=== PATIENT | male | born 1985 ===

== ENCOUNTER 2018-03-08 07:49 | Inpatient (IN) | payer BC ==
[2018-03-08 07:49] VITALS: BMI 28.1
[2018-03-08] MEDS ORDERED: Midazolam 2 MG/2 ML VIAL ONE (08:01)
[2018-03-08] MEDS ORDERED: DiphenhydrAMINE 50 mg/ml Inj IVP STA (08:02)
[2018-03-08] MEDS ORDERED: Midazolam 2 MG/2 ML VIAL IV STA (08:02)
[2018-03-08] MEDS ORDERED: DiphenhydrAMINE 50 mg/ml Inj ONE (08:02)
--- NOTE | 2018-03-08 08:02 | C.PDOC ---
History Of Present Illness 32 y/o male, w/PMhx of CVA ( January 2018) brought to ER by ambulance from detention for new onset of difficulty speaking and left leg weakness. Per detention staff and EMS, patient was last seen at baseline mental status at 1:30 am. long-term staff notes that he was conversational. Currently, patient is able to communicate about his symptoms by typing on his cellphone. Patient states that his jaw is clenched, he is not able to "release" his jaw and speak. He notes that his "whole body feels tight. He has questionable new onset of worsening weakness of left leg and questionable new onset of parasthesias. He has history of baseline RUE and RLE weakness due to prior stroke. Per detention records, he is currently on medications for extraperitoneal symptoms. Denies having CP and SOB. Time Seen by Provider: 03/08/18 08:01 Chief Complaint (Nursing): Weakness/Neurological Deficit History Per: Patient, EMS, Other (detention staff) History/Exam Limitations: clinical condition Onset/Duration Of Symptoms: Hrs Current Symptoms Are (Timing): Still Present Severity: Moderate Past Medical History Reviewed: Historical Data, Nursing Documentation, Vital Signs - Medical History PMH: Asthma (Only when pt. was "a little kid") Denies: HIV, Chronic Kidney Disease Other Surgeries: Hx of surgeries - [facility] Procedures APHASIA TREATMENT USING AUGMENT COMM EQUIPMENT (01/20/18) EXERCISE TRMT MUSCULOSK LOW BACK/LE W ASSIST EQUIP (01/20/18) GAIT TRAINING/AMBULAT TREATMENT USING ASSIST EQUIPMENT (01/20/18) HOME MANAGEMENT TREATMENT USING ASSIST EQUIPMENT (01/20/18) INSPECTION OF LARYNX, ENDO (01/20/18) INTRODUCTION OF SERUM/TOX/VACCINE INTO MUSCLE, PERC APPROACH (01/20/18) SPINAL TAP (11/11/14) SWALLOW DYSFUNCTION TREATMENT USING AUGMENT COMM EQUIPMENT (01/20/18) Family History: States: No Known Family Hx - Social History Hx Alcohol Use: No Hx Substance Use: No Review Of Systems Review Of Systems: ROS cannot be obtained secondary to pt's inabilty to answer questions. Physical Exam - Physical Exam Appears: Other (awake,alert) Skin: Normal Color, Warm, Dry Head: Atraumatic, Normacephalic Eye(s): bilateral: Normal Inspection Nose: Normal Oral Mucosa: No Drooling, Trismus (severe trismus), Other (unable to open mouth) Neck: Supple Chest: Symmetrical Cardiovascular: Rhythm Regular Respiratory: Normal Breath Sounds, No Rales, No Rhonchi, No Wheezing Neurological/Psych: Other (awake, alert, non-verbal due to trismus, pt able to type on cellphone note for communication, appropriately interactive, follows instructions appropriately, chronic right-sided hemiparesis) ED Course And Treatment - Laboratory Results Result Diagrams: 03/08/18 08:57 03/08/18 08:57 ECG: Interpreted By Me, Viewed By Me ECG Rhythm: Sinus Rhythm ECG Interpretation: Normal Rate From EC - Other Rad CXR X-Ray: Viewed By Me, Read By Radiologist Interpretation: Chest x-ray single frontal view. HISTORY: Code stroke. MONIQUE RISON: None available. Findings: Mild venous congestion. Right hilar prominence. Mild cardiomegaly. Degenerative changes in the spine and shoulders. Impression: Mild venous congestion. Right hilar prominence. Mild cardiomegaly. - CT Scan/US CT-Head Other Rad Studies (CT/US): Read By Radiologist, Radiology Report Reviewed CT/US Interpretation: Date of service: 03/08/2018. PROCEDURE: CT HEAD WITHOUT CONTRAST. HISTORY: Code Stroke. COMPARISON: None available. TECHNIQUE: Axial computed tomography images were obtained through the head/brain without intravenous contrast. Radiation dose: Total exam DLP = 1093.03 mGy-cm. This CT exam was performed using one or more of the following dose reduction techniques: Automated exposure control, adjustment of the mA and/or kV according to patient size, and/or use of iterative reconstruction technique. FINDINGS: Mild streak artifact limits evaluation of the skull base. HEMORRHAGE: No intracranial hemorrhage. BRAIN: No mass effect or edema. The foster-white matter differentiation appears intact. VENTRICLES: No hydrocephalus. CALVARIUM: Unremarkable. PARANASAL SINUSES: Unremarkable as visualized. No significant inflammatory changes. MASTOID AIR CELLS: Unremarkable as visualized. No inflammatory changes. OTHER FINDINGS: None. IMPRESSION: No acute intracranial pathology identified. Please note that MRI with diffusion imaging is more sensitive in the detection of acute ischemic event. Findings discussed with Dr. López on 03/08/18 at 8:25 a.m. CTA Other Rad Studies (CT/US): Read By Radiologist, Radiology Report Reviewed CT/US Interpretation: Date of service: 03/08/2018. PROCEDURE: CT Angiography of the neck and brain with contrast. HISTORY: Code stroke. COMPARISON: None. TECHNIQUE: Contiguous axial images of the neck and brain were obtained from the level of the vertex of the skull to the superior mediastinum in the arteriographic phase of enhancement. Coronal and sagittal reformats or also generated. IV contrast dose: 100 cc Visipaque 320 contrast material. Radiation dose: Total exam DLP = 699.48 mGy-cm. This CT exam was performed using one or more of the following dose reduction techniques: Automated exposure control, adjustment of the mA and/or kV according to patient size, and/or use of iterative reconstruction technique. Note that the study is slightly limited by motion artifact. FINDINGS: The aortic arch is patent with no significant ath erosclerotic calcification or moral plaque. The origins of the great vessels are also patent.. Common carotid arteries including the carotid bifurcations are patent with no evidence of occlusion significant stenosis or dissection. Note that motion artifact likely due to swallowing at time of image acquisition results in some obscuration of the distal common carotid artery/carotid bifurcations and proximal internal carotid arteries bilaterally. The distal internal carotid arteries including the petrous, cavernous and supraclinoid segments are patent. The the. Vertebral arteries are also patent without evidence of occlusion dissection or significant stenosis. Basilar artery is also patent. The visualized major branches of the [place] well as are patent. The distal branches of the anterior middle and posterior cerebral arteries are patent and relatively symmetric as well. No evidence of large aneurysm nor vascular malformation. OTHER FINDINGS: No aortic atherosclerotic calcification or mural plaque present. IMPRESSION: No evidence of significant atherosclerotic disease. Evidence of occlusion, significant stenosis or evidence of dissection. No large aneurysm nor vascular malformation. NIHSS Stroke Scale - Date/Time Evaluation Performed Date Performed: 03/08/18 Time Performed: 08:00 When Was NIHSS Performed: Code Stroke - How Severe is the Stroke Level of Consciousness: 0=Alert LOC to Questions: 0=Both comments correct LOC to commands: 0=Obeys both correctly Best Gaze: 0=Normal Visual: 0=No visual loss Facial: 0=Normal Motor Arm - Left: 0=No drift Motor Arm - Right: 3=No effort against gravity (falls immediately) Motor Leg - Left: 4=No movement Motor Leg - Right: 4=No movement Limb Ataxia: 0=Absent Sensory: 1=Mild to moderate loss Best Language: 3=Mute Dysarthia: 2=Severe, near unintelligible or worse Extinction & Inattention (Neglect): 0=Normal, no object Score: 17 NIHSS Stroke Scale 2 - Date/Time Evaluation Performed Date Performed: 03/08/18 Time Performed: 08:00 When Was NIHSS Performed: Code Stroke Re-evaluation - How Severe is the Stroke Level of Consciousness: 0=Alert LOC to Questions: 0=Both comments correct LOC to commands: 0=Obeys both correctly Best Gaze: 0=Normal Visual: 0=No visual loss Facial: 0=Normal Motor Arm - Left: 0=No drift Motor Arm - Right: 3=No effort against gravity (falls immediately) Motor Leg - Left: 4=No movement Motor Leg - Right: 4=No movement Limb Ataxia: 0=Absent Sensory: 1=Mild to moderate loss Best Language: 2=Severe aphasia Dysarthia: 2=Severe, near unintelligible or worse Extinction & Inattention (Neglect): 0=Normal, no object Score: 16 Progress - Re-Evaluation Re-evaluation Note: 03/08/18 08:31 D/W DR LATIF NEURO SPIKE MACHINE FEEDER AWARE OF ER FINDINGS. CTA, REEVAL 03/08/18 09:15 ABLE TO OPEN MOUTH, VISUALIZE TONGUE. PT WRITES STILL UNABLE TO CONTROL TONGUE FOR SPEECH. ALERT, INTERACTIVE. MOTOR EXAM UNCH. ABLE TO TYPE ON IPHONE W L HAND. DR LATIF AWARE, RECOMMENDS COGENTIN AND MRI IF CTA NEG 03/08/18 12:12 MRI SPINE REPORT PENDING. DR LATIF RECOMMENDS ADMISSION, WILL CONSULT PENDING CALLBACK DR Alexa FERNANDEZ MED SPIKE MACHINE FEEDER - Data Reviewed Data Reviewed: Lab, Diagnostic imaging, EKG, Old records - Critical Care Citical Care: Excluding Proc Time Critical Care Time: 90 minutes rTPA Inclusion/Exclusion - Refusal of Treatment Patient Refused Treatment: No - Inclusion Criteria for Altepase Patient is 18 years or Older: Yes The Clinical Diagnosis of Ischemic Stroke That is Causing a Potentially Disabling Neurological Deficit: Yes Time of Onset is Well Established to be Less Than 270 Minute Before Treatment Would Begin: No Risk/Benefit Discussed With Patient/Family Member Present: Yes - Exclusion Criteria for Altepase Uncontrolled Hypertension at Time of Treatment (Systolic BP above 185 or Diastolic BP above 110 mmHg): No Less Than 3 Months Had a Recent: Stroke Active Internal Bleeding: No Known Bleeding Diathesis Including but Not Limited to: Platelets Below 100,000/mm,PTT Above 40 sec After Heparin Use, Current Use of Oral Anitcoagulant With INR Greater Than 1.7 or PT Greater Than 15 secs: No Evidence of an Intracranial Hemorrhage: No Evidence of Major Acute Infarct With Signs Greater Than 1/3 MCA Territory: No Suspicion of Subarachnoid Hemorrhage on Pretreatment Evaluation Even if CT Head Negative For Hemorrhage: No - Warning to TPA With Conditions Following Conditions Weighed Against Anticipated Benefit: Yes Condition: Increase Risk of Bleed Due to Comorbid Condition Medical Decision Making Medical Decision Making: Plan: --Labs --CT-Head --CTA-Head/Neck --CXR --Benadryl IV --Cogentin IV Disposition Counseled Patient/Family Regarding: Studies Performed, Diagnosis - Disposition Disposition: HOSPITALIZED Disposition Time: 12:18 Condition: STABLE - Clinical Impression Clinical Impression: Leg weakness, Dystonia - Scribe Statement The provider has reviewed the documentation as recorded by the Roro Stallworth Provider Attestation: All medical record entries made by the Roro were at my direction and personally dictated by me. I have reviewed the chart and agree that the record accurately reflects my personal performance of the history, physical exam, medical decision making, and the department course for this patient. I have also personally directed, reviewed, and agree with the discharge instructions and disposition.
[2018-03-08] MEDS ORDERED: Iodixanol 320 MG/ML 100 ML BOTTLE IV ONE (08:26)
--- NOTE | 2018-03-08 08:32 | CT ---
Date of service: 03/08/2018 PROCEDURE: CT HEAD WITHOUT CONTRAST. HISTORY: Code Stroke COMPARISON: None available. TECHNIQUE: Axial computed tomography images were obtained through the head/brain without intravenous contrast. Radiation dose: Total exam DLP = 1093.03 mGy-cm. This CT exam was performed using one or more of the following dose reduction techniques: Automated exposure control, adjustment of the mA and/or kV according to patient size, and/or use of iterative reconstruction technique. FINDINGS: Mild streak artifact limits evaluation of the skull base. HEMORRHAGE: No intracranial hemorrhage. BRAIN: No mass effect or edema. The foster-white matter differentiation appears intact. VENTRICLES: No hydrocephalus. CALVARIUM: Unremarkable. PARANASAL SINUSES: Unremarkable as visualized. No significant inflammatory changes. MASTOID AIR CELLS: Unremarkable as visualized. No inflammatory changes. OTHER FINDINGS: None. IMPRESSION: No acute intracranial pathology identified. Please note that MRI with diffusion imaging is more sensitive in the detection of acute ischemic event. Findings discussed with Dr. López on 03/08/18 at 8:25 a.m.
[2018-03-08 09:02] LABS: BASO % 0.5 % (0.0-2.0); EOS # 0.3 K/uL (0.0-0.7); EOS % 4.4 % (0.0-4.0); HEMOGLOBIN 14.6 g/dL (12.0-18.0); LYMPH # 1.6 K/uL (1.0-4.3); LYMPH % 24.1 % (20.0-40.0); MEAN CELL VOLUME 90.5 fL (80.0-94.0); MEAN CORPUSCULAR HEMOGLOBIN 30.7 pg (27.0-31.0); MEAN CORPUSCULAR HGB CONC 33.9 g/dL (33.0-37.0); MEAN PLATELET VOLUME 8.8 fL (7.2-11.7); MONO # 0.6 K/uL (0.0-0.8); MONO % 9.4 % (0.0-10.0); NEUT # 4.1 K/uL (1.8-7.0); NEUT % 61.6 % (50.0-75.0); RBC 4.77 Mil/uL (4.40-5.90); RED CELL DISTRIBUTION WIDTH 12.5 % (11.5-14.5); WHITE BLOOD COUNT 6.7 K/uL (4.8-10.8)
[2018-03-08 09:13] LABS: INR 1.1; PROTHROMBIN TIME 12.5 SECONDS (9.7-12.2)
[2018-03-08 09:22] LABS: ALB/GLOB RATIO 1.6 (1.0-2.1); ALBUMIN 4.4 g/dL (3.5-5.0); ALT/SGPT 53 U/L (21-72); AST/SGOT 29 U/L (17-59); BLOOD UREA NITROGEN 17 mg/dL (9-20); CALCIUM 9.2 mg/dl (8.6-10.4); GFR NON-AFRICAN AMERICAN > 60; HDL CHOLESTEROL 29 mg/dL (30-70)
--- NOTE | 2018-03-08 09:25 | RAD ---
Chest x-ray single frontal view HISTORY: Code stroke. COMPARISON: None available. Findings: Mild venous congestion. Right hilar prominence. Mild cardiomegaly. Degenerative changes in the spine and shoulders. Impression: Mild venous congestion. Right hilar prominence. Mild cardiomegaly.
[2018-03-08 09:33] LABS: LDL CHOLESTEROL 173 mg/dL (0-129)
--- NOTE | 2018-03-08 09:48 | CT ---
Date of service: 03/08/2018 PROCEDURE: CT Angiography of the neck and brain with contrast HISTORY: Code stroke COMPARISON: None. TECHNIQUE: Contiguous axial images of the neck and brain were obtained from the level of the vertex of the skull to the superior mediastinum in the arteriographic phase of enhancement. Coronal and sagittal reformats or also generated. IV contrast dose: 100 cc Visipaque 320 contrast material. Radiation dose: Total exam DLP = 699.48 mGy-cm. This CT exam was performed using one or more of the following dose reduction techniques: Automated exposure control, adjustment of the mA and/or kV according to patient size, and/or use of iterative reconstruction technique. Note that the study is slightly limited by motion artifact. FINDINGS: The aortic arch is patent with no significant atherosclerotic calcification or moral plaque. The origins of the great vessels are also patent.. Common carotid arteries including the carotid bifurcations are patent with no evidence of occlusion significant stenosis or dissection. Note that motion artifact likely due to swallowing at time of image acquisition results in some obscuration of the distal common carotid artery/carotid bifurcations and proximal internal carotid arteries bilaterally. The distal internal carotid arteries including the petrous, cavernous and supraclinoid segments are patent. The the Vertebral arteries are also patent without evidence of occlusion dissection or significant stenosis. Basilar artery is also patent. The visualized major branches of the [place] well as are patent. The distal branches of the anterior middle and posterior cerebral arteries are patent and relatively symmetric as well. No evidence of large aneurysm nor vascular malformation. OTHER FINDINGS: No aortic atherosclerotic calcification or mural plaque present. IMPRESSION: No evidence of significant atherosclerotic disease. Evidence of occlusion, significant stenosis or evidence of dissection. No large aneurysm nor vascular malformation.
--- NOTE | 2018-03-08 11:55 | MRI ---
Date of service: 03/08/2018 PROCEDURE: MRI BRAIN WITHOUT CONTRAST HISTORY: Left leg weakness, TRISMUS COMPARISON: None available. TECHNIQUE: Multiplanar, multisequence MR images of the brain were obtained without intravenous contrast enhancement. FINDINGS: HEMORRHAGE: No acute parenchymal, subarachnoid or extra-axial hemorrhage. No evidence of hemosiderin deposition identified on gradient echo weighted sequence. DWI: No evidence of an acute or early subacute infarction seen on diffusion imaging.. BRAIN PARENCHYMA: No masses, mass-effect or edema. No atrophy or chronic microvascular ischemic changes. VENTRICLES: No obstructive hydrocephalus. CRANIUM: Unremarkable. ORBITS: Orbits and contents unremarkable.. PARANASAL SINUSES/MASTOIDS: Clear VASCULAR SYSTEM: Visualized major vascular flow voids at skull base patent.. OTHER FINDINGS: None. IMPRESSION: Unremarkable non contrast enhanced MRI of the brain.
[2018-03-08] MEDS ORDERED: Gadodiamide 287 mg/ml 20 ml IV ONE (12:09)
--- NOTE | 2018-03-08 13:08 | CP.PCM.CON ---
<Lynnette Crespo - Last Filed: 03/08/18 17:08> History of Present Illness - History of Present Illness History of Present Illness: Consult note for Dr. Torre Patient is a 32 year old male who presents to the ED from a custodial with inability to open mouth, inability to speak, left leg paralysis, and right arm weakness and hand clenching. The patient is able to text with his left hand to explain what happened and answer questions. Patient's brother is also at bedside assisting with the history. As of this morning, the patient woke up, was able to open his eyes and move his left arm, but could not move the rest of his body. He says he is unable to open his jaw and unable to open his clenched right hand. Per the brother, the patient went for a laproscopic inguinal hernia repair in January 2018, was oversedated during the procedure, and woke up with right leg paralysis. He has been going through speech therapy and physical therapy since then. During the current episode, he was last seen at his baseline around 1:30am this morning. Per the brother, the patient was normal yesterday except for the chronic right leg paralysis and chronic constipation. The patient also states he urinated on himself and did not realize or feel that he did. He has not had urinary incontinence prior to this morning. The patient states his whole body feels tight and he no longer has sensation in his lower extremities. He denies chest pain, palpitations, dyspnea, cough, nausea, vomiting, fevers, headaches, changes in vision, and dizziness. Of note, patient brother reports that the patient had a similar episode (unable to speak, clenched jaw, etc.) a few years ago after a major stressor and was attributed to "lack of sleep". Per the brother, the patient was required to get 8+ hours of sleep and the symptoms resolved shortly after. PMHx: CVA 01/2018 SurgHx: Left knee surgery many years ago; left inguinal hernia repair 01/2018 FamHx: Mother- HTN SocHx: denies tobacco, alcohol, and drug use. Allergies: NKDA Medications: unsure, but per ER physician, patient was receiving cogentin in the custodial. Review of Systems - Review of Systems Systems not reviewed;Unavailable: Other (unable to speak) - Constitutional Constitutional: As Per HPI, Weakness (LE b/l, RUE) - EENT Eyes: As Per HPI. absent: Change in Vision Nose/Mouth/Throat: As Per HPI Additional comments: trismus - Cardiovascular Cardiovascular: As Per HPI. absent: Chest Pain, Dyspnea - Respiratory Respiratory: As Per HPI. absent: Cough, Dyspnea - Gastrointestinal Gastrointestinal: As Per HPI, Constipation. absent: Diarrhea, Nausea, Vomiting - Genitourinary Genitourinary: Urinary Incontinence - Musculoskeletal Musculoskeletal: Numbness (loss of sensation LE b/l, paralysis LE b/l) - Neurological Neurological: Memory Loss, Sensory Deficit (LE b/l), Weakness (LE paralysis b/l). absent: Dizziness, Headaches, Other Visual Disturbances - Endocrine Endocrine: absent: Palpitations Past Patient History - Past Medical History & Family History Past Medical History?: No - Past Social History Smoking Status: Never Smoked - CARDIAC Hx Cardiac Disorders: No - PULMONARY Hx Asthma: Yes (Only when pt. was "a little kid") - NEUROLOGICAL Hx Neurological Disorder: No - HEENT Hx HEENT Problems: No - RENAL Hx Chronic Kidney Disease: No - ENDOCRINE/METABOLIC Hx Endocrine Disorders: No - HEMATOLOGICAL/ONCOLOGICAL Hx Human Immunodeficiency Virus (HIV): No - INTEGUMENTARY Hx Dermatological Problems: No Other/Comment: CHICKEN POX - MUSCULOSKELETAL/RHEUMATOLOGICAL Hx Falls: No Other/Comment: - Post-operative extrapyramidal deficit - GASTROINTESTINAL Hx Gastrointestinal Disorders: No - GENITOURINARY/GYNECOLOGICAL Hx Genitourinary Disorders: Yes Other/Comment: - Post-operative urinary retention - PSYCHIATRIC Hx Substance Use: No - SURGICAL HISTORY Hx Surgeries: Yes Hx Orthopedic Surgery: Yes Other/Comment: - 01/11/2018: Laparoscopic left inguinal hernia repair. - 2009: Left knee surgery to remove abscess (+ MRSA). - When patient was [age] years of age: surgery to reattach left middle finger. LEFT 3RD FINGER REPAIR - ANESTHESIA Hx Anesthesia: Yes Hx Anesthesia Reactions: Yes (1) No recollection and no swallowing for about 3 days) Hx Malignant Hyperthermia: No Meds Allergies/Adverse Reactions: Allergies Allergy/AdvReac Type Severity Reaction Status Date / Time No Known Allergies Allergy Verified 03/08/18 07:52 - Medications Medications: Current Medications Lorazepam (Ativan) 1 mg IVP ONCE PRN PRN Reason: Anxiety Physical Exam - Head Exam Head Exam: ATRAUMATIC - Eye Exam Eye Exam: EOMI, PERRL - ENT Exam Additional comments: Trismus, unable to exam inside mouth - Respiratory Exam Respiratory Exam: NORMAL BREATHING PATTERN. absent: Rales, Wheezes, Respiratory Distress - Cardiovascular Exam Cardiovascular Exam: REGULAR RHYTHM, +S1, +S2 - GI/Abdominal Exam GI & Abdominal Exam: Normal Bowel Sounds, Soft. absent: Tenderness - Extremities Exam Extremities exam: Positive for: pedal pulses present. Negative for: full ROM (no ROM, paralysis LE b/l; RUE- clenched fist, unable to open, and 1-2/5 strength), pedal edema, tenderness - Neurological Exam Neurological exam: Alert, Motor Sensory Deficit, Oriented x3, Reflexes Normal Additional comments: LE b/l: motor not intact; decreased sensation R>L UE: RUE- clenched fist, 1-2/5 motor strength, sensation intact; LUE- motor and sensory intact, strength 5/5 Babinski normal b/l Normal reflexes b/l - Skin Skin Exam: Normal Color, Warm Results - Vital Signs Recent Vital Signs: Last Vital Signs Temp 99.6 F 03/08/18 12:56 Pulse 44 L 03/08/18 12:56 Resp 16 03/08/18 12:56 BP 117/78 03/08/18 12:56 Pulse Ox 95 03/08/18 12:56 - Labs Result Diagrams: 03/08/18 08:57 03/08/18 08:57 Labs: Laboratory Results - last 24 hr 03/08/18 03/08/18 03/08/18 08:57 08:57 08:57 WBC 6.7 RBC 4.77 Hgb 14.6 Hct 43.2 MCV 90.5 MCH 30.7 MCHC 33.9 RDW 12.5 Plt Count 220 MPV 8.8 Neut % (Auto) 61.6 Lymph % (Auto) 24.1 [place] % (Auto) 9.4 Eos % (Auto) 4.4 H Baso % (Auto) 0.5 Neut # (Auto) 4.1 Lymph # (Auto) 1.6 [place] # (Auto) 0.6 Eos # (Auto) 0.3 Baso # (Auto) 0.0 PT 12.5 H INR 1.1 APTT 32 Sodium 139 Potassium 4.4 Chloride 98 Carbon Dioxide 31 H Anion Gap 14 BUN 17 Creatinine 0.9 Est GFR ( Amer) > 60 Est GFR (Non-Af Amer) > 60 Random Glucose 103 Hemoglobin A1c Calcium 9.2 Total Bilirubin 0.4 AST 29 ALT 53 Alkaline Phosphatase 46 Troponin I < 0.0120 Total Protein 7.2 Albumin 4.4 Globulin 2.8 Albumin/Globulin Ratio 1.6 Triglycerides 115 Cholesterol 193 LDL Cholesterol Direct 173 H HDL Cholesterol 29 L Blood Type Antibody Screen 03/08/18 03/08/18 08:57 08:57 WBC RBC Hgb Hct MCV MCH MCHC RDW Plt Count MPV Neut % (Auto) Lymph % (Auto) [place] % (Auto) Eos % (Auto) Baso % (Auto) Neut # (Auto) Lymph # (Auto) [place] # (Auto) Eos # (Auto) Baso # (Auto) PT INR APTT Sodium Potassium Chloride Carbon Dioxide Anion Gap BUN Creatinine Est GFR ( Amer) Est GFR (Non-Af Amer) Random Glucose Hemoglobin A1c 5.0 Calcium Total Bilirubin AST ALT Alkaline Phosphatase Troponin I Total Protein Albumin Globulin Albumin/Globulin Ratio Triglycerides Cholesterol LDL Cholesterol Direct HDL Cholesterol Blood Type A POSITIVE Antibody Screen Negative Assessment & Plan - Assessment and Plan (Free Text) Assessment: 32 year old male with a history of CVA presented with LE paralysis, trismus, and RUE weakness. Code Stroke was called. Plan: - Acute dystonia syndrome vs. stroke vs. conversion disorder? - NIH score of 22, but difficult to assess due to patients condition - Head CT: No acute intracranial pathology identified. - Head/Neck CTA: No evidence of significant atherosclerotic disease, evidence of occlusion, significant stenosis or evidence of dissection. No large aneurysm nor vascular malformation. - Brain MRI: unremarkable, no acute or chronic changes - Thoracic spine MRI w/ and w/o ROMELIA: no acute abnormality - Lumbar spine MRI w/ and w/o ROMELIA: no acute abnormality - In the ED, Patient was given stat orders of: Cogentin 1mg IV, Benadryl 50mg IV, Midazolam 1mg IV, and Ativan 1mg IV - Patient will be admitted. All imaging negative for acute abnormalities. No evidence of prior stroke on MRI; lumbar and thoracic MRI are essentially normal as well. Currently, there is no explanation for patient symptoms. Will consider psychiatric evaluation for conversion disorder. Will give once dose of Haldol 3mg PO. Will also consider LP if symptoms continue or worsen and an outpatient nerve conduction studies. Case discussed with Dr. Yelitza Lau, PGY2 <Dario Torre - Last Filed: 03/16/18 18:34> Meds - Medications Medications: Current Medications Acetaminophen (Tylenol 325mg Tab) 650 mg PO Q6 PRN PRN Reason: PAIN 1-5 Last Admin: 03/13/18 19:23 Dose: 650 mg Aspirin (Aspirin Chewable) 81 mg PO DAILY [facility] Last Admin: 03/16/18 09:23 Dose: 81 mg Benztropine Mesylate (Cogentin) 0.5 mg PO BID [facility] Last Admin: 03/16/18 17:21 Dose: 0.5 mg Enoxaparin Sodium (Lovenox) 40 mg SC DAILY [facility] Last Admin: 03/16/18 09:22 Dose: 40 mg Lactulose (Enulose) 20 gm PO Q8H [facility] Last Admin: 03/16/18 13:08 Dose: 20 gm Lorazepam (Ativan) 1 mg IVP ONCE PRN PRN Reason: Anxiety Pantoprazole Sodium (Protonix Ec Tab) 40 mg PO DAILY [facility] Last Admin: 03/16/18 09:23 Dose: 40 mg Rosuvastatin Calcium (Crestor) 5 mg PO HS [facility] Last Admin: 03/15/18 21:24 Dose: 5 mg Senna/Docusate Sodium (Senokot S 50 Mg-8.6 Mg) 2 tab PO HS [facility] Last Admin: 03/15/18 21:24 Dose: 2 tab Simethicone (Mylicon Chew Tab) 80 mg PO Q8H [facility] Last Admin: 03/16/18 13:08 Dose: 80 mg Tamsulosin HCl (Flomax) 0.4 mg PO DAILY [facility] Last Admin: 03/16/18 09:23 Dose: 0.4 mg Results - Vital Signs Recent Vital Signs: Last Vital Signs Temp 97.8 F 03/16/18 15:00 Pulse 96 H 03/16/18 15:00 Resp 20 03/16/18 15:00 BP 134/88 03/16/18 15:00 Pulse Ox 98 03/16/18 15:00 - Labs Result Diagrams: 03/15/18 10:36 03/15/18 10:36 Labs: Laboratory Results - last 24 hr 03/15/18 03/15/18 03/16/18 16:11 21:38 07:47 POC Glucose (mg/dL) 105 127 H 117 H 03/16/18 03/16/18 11:56 17:06 POC Glucose (mg/dL) 109 162 H Attending/Attestation - Attestation I have personally seen and examined this patient.: Yes I have fully participated in the care of the patient.: Yes I have reviewed all pertinent clinical information: Yes Notes (Text): 03/16/18 18:34 I agree with the assessment and plan. This appears to be more psychological than neurological.
--- NOTE | 2018-03-08 14:29 | MRI ---
Date of service: 03/08/2018 PROCEDURE: MR THORACIC SPINE WITH AND WITHOUT CONTRAST HISTORY: LE paralysis COMPARISON: None available. TECHNIQUE: Multiecho multiplanar sequences were performed through the thoracic spine with and without the use of intravenous contrast. FINDINGS: ALIGNMENT: Normal thoracic spinal alignment. Normal thoracic kyphosis. VERTEBRA: Vertebral body height are preserved. MARROW: Marrow signal unremarkable. PARASPINAL SOFT TISSUES: Unremarkable. CORD: Unremarkable thoracic cord. No volume loss, signal abnormality or syrinx. DISCS: Disc spaces demonstrate adequate height and hydration. No disc herniation, spinal canal stenosis, or neuroforaminal narrowing. No evidence of abnormal enhancement within the disc spaces are adjoining endplates. ENHANCEMENT: No evidence of abnormal enhancement within or along the surfaces of the visualized spinal cord. No evidence of extradural or intradural masses or collections.. OTHER FINDINGS: None. IMPRESSION: Unremarkable pre and post contrast enhanced MRI of the thoracic spine
--- NOTE | 2018-03-08 14:32 | MRI ---
Date of service: 03/08/2018 PROCEDURE: MR LUMBAR SPINE WITH AND WITHOUT CONTRAST HISTORY: LE paralysis COMPARISON: None available. TECHNIQUE: Multiecho multiplanar sequences were performed through the lumbar spine with and without the use of intravenous contrast. FINDINGS: The current study reveals no acute compression fractures nor retropulsed fragments. Vertebral bodies exhibit normal stature. Vertebral bodies and facets normally aligned. Marrow signal unremarkable. Disc space heights are maintained. There is adequate disc height and hydration.. There are no disc herniations nor significant disc bulges. The facet joints are hypertrophic from the L5-S1 through the L1-L2 levels in decreasing order of severity. The overall central bony canal and exit foramina are adequate. No evidence of abnormal enhancement within the disc spaces, adjoining endplates or vertebral bodies. No evidence of abnormal contrast enhancement within or along the visualized lower thoracic spinal cord/conus or nerve roots of the cauda equina.. No evidence of intradural extramedullary masses or collections. No extradural masses or collections. Conus medullaris terminates at approximately the upper/mid L1 level. Paraspinal soft tissues are unremarkable. OTHER FINDINGS: No additional other significant findings. IMPRESSION: Mild multilevel facet arthropathy. No evidence of significant canal nor foraminal stenosis. No evidence of abnormal contrast enhancement within the vertebral bodies endplates or disc spaces. No evidence of abnormal enhancement within or along the surfaces of the visualized lower thoracic spinal cord conus or nerve roots of the cauda equina.
[2018-03-08] MEDS: Sodium Chloride 0.9% 1,000 ML IV SCH (17:53)
--- NOTE | 2018-03-08 18:55 | CP.PCM.HP ---
Past Patient History - Past Medical History & Family History Past Medical History?: No - Past Social History Smoking Status: Never Smoked - CARDIAC Hx Cardiac Disorders: No - PULMONARY Hx Asthma: Yes (Only when pt. was "a little kid") - NEUROLOGICAL Hx Neurological Disorder: No - HEENT Hx HEENT Problems: No - RENAL Hx Chronic Kidney Disease: No - ENDOCRINE/METABOLIC Hx Endocrine Disorders: No - HEMATOLOGICAL/ONCOLOGICAL Hx Human Immunodeficiency Virus (HIV): No - INTEGUMENTARY Hx Dermatological Problems: No Other/Comment: CHICKEN POX - MUSCULOSKELETAL/RHEUMATOLOGICAL Hx Falls: No Other/Comment: - Post-operative extrapyramidal deficit - GASTROINTESTINAL Hx Gastrointestinal Disorders: No - GENITOURINARY/GYNECOLOGICAL Hx Genitourinary Disorders: Yes Other/Comment: - Post-operative urinary retention - PSYCHIATRIC Hx Substance Use: No - SURGICAL HISTORY Hx Surgeries: Yes Hx Orthopedic Surgery: Yes Other/Comment: - 01/11/2018: Laparoscopic left inguinal hernia repair. - 2009: Left knee surgery to remove abscess (+ MRSA). - When patient was [age] years of age: surgery to reattach left middle finger. LEFT 3RD FINGER REPAIR - ANESTHESIA Hx Anesthesia: Yes Hx Anesthesia Reactions: Yes (1) No recollection and no swallowing for about 3 days) Hx Malignant Hyperthermia: No Meds Allergies/Adverse Reactions: Allergies Allergy/AdvReac Type Severity Reaction Status Date / Time No Known Allergies Allergy Verified 03/08/18 07:52 Physical Exam - Constitutional Appears: Well - Head Exam Head Exam: ATRAUMATIC, NORMAL INSPECTION, NORMOCEPHALIC - Eye Exam Eye Exam: EOMI, Normal appearance, PERRL Pupil Exam: NORMAL ACCOMODATION, PERRL - ENT Exam ENT Exam: Mucous Membranes Moist, Normal Exam - Neck Exam Neck exam: Positive for: Normal Inspection - Respiratory Exam Respiratory Exam: Decreased Breath Sounds - Cardiovascular Exam Cardiovascular Exam: REGULAR RHYTHM, +S1, +S2 - GI/Abdominal Exam GI & Abdominal Exam: Diminished Bowel Sounds, Soft - Rectal Exam Rectal Exam: Deferred Results - Vital Signs Recent Vital Signs: Last Vital Signs Temp 98.4 F 03/08/18 14:00 Pulse 70 03/08/18 16:30 Resp 20 03/08/18 14:00 BP 125/81 03/08/18 14:00 Pulse Ox 98 03/08/18 14:00 - Labs Result Diagrams: 03/08/18 08:57 03/08/18 08:57 Labs: Laboratory Results - last 24 hr 03/08/18 03/08/18 03/08/18 07:51 08:57 08:57 WBC 6.7 RBC 4.77 Hgb 14.6 Hct 43.2 MCV 90.5 MCH 30.7 MCHC 33.9 RDW 12.5 Plt Count 220 MPV 8.8 Neut % (Auto) 61.6 Lymph % (Auto) 24.1 [place] % (Auto) 9.4 Eos % (Auto) 4.4 H Baso % (Auto) 0.5 Neut # (Auto) 4.1 Lymph # (Auto) 1.6 [place] # (Auto) 0.6 Eos # (Auto) 0.3 Baso # (Auto) 0.0 PT 12.5 H INR 1.1 APTT 32 Sodium Potassium Chloride Carbon Dioxide Anion Gap BUN Creatinine Est GFR ( Amer) Est GFR (Non-Af Amer) POC Glucose (mg/dL) 91 Random Glucose Hemoglobin A1c Calcium Total Bilirubin AST ALT Alkaline Phosphatase Troponin I Total Protein Albumin Globulin Albumin/Globulin Ratio Triglycerides Cholesterol LDL Cholesterol Direct HDL Cholesterol Blood Type Antibody Screen 03/08/18 03/08/18 03/08/18 08:57 08:57 08:57 WBC RBC Hgb Hct MCV MCH MCHC RDW Plt Count MPV Neut % (Auto) Lymph % (Auto) [place] % (Auto) Eos % (Auto) Baso % (Auto) Neut # (Auto) Lymph # (Auto) [place] # (Auto) Eos # (Auto) Baso # (Auto) PT INR APTT Sodium 139 Potassium 4.4 Chloride 98 Carbon Dioxide 31 H Anion Gap 14 BUN 17 Creatinine 0.9 Est GFR ( Amer) > 60 Est GFR (Non-Af Amer) > 60 POC Glucose (mg/dL) Random Glucose 103 Hemoglobin A1c 5.0 Calcium 9.2 Total Bilirubin 0.4 AST 29 ALT 53 Alkaline Phosphatase 46 Troponin I < 0.0120 Total Protein 7.2 Albumin 4.4 Globulin 2.8 Albumin/Globulin Ratio 1.6 Triglycerides 115 Cholesterol 193 LDL Cholesterol Direct 173 H HDL Cholesterol 29 L Blood Type A POSITIVE Antibody Screen Negative 03/08/18 16:41 WBC RBC Hgb Hct MCV MCH MCHC RDW Plt Count MPV Neut % (Auto) Lymph % (Auto) [place] % (Auto) Eos % (Auto) Baso % (Auto) Neut # (Auto) Lymph # (Auto) [place] # (Auto) Eos # (Auto) Baso # (Auto) PT INR APTT Sodium Potassium Chloride Carbon Dioxide Anion Gap BUN Creatinine Est GFR ( Amer) Est GFR (Non-Af Amer) POC Glucose (mg/dL) 74 Random Glucose Hemoglobin A1c Calcium Total Bilirubin AST ALT Alkaline Phosphatase Troponin I Total Protein Albumin Globulin Albumin/Globulin Ratio Triglycerides Cholesterol LDL Cholesterol Direct HDL Cholesterol Blood Type Antibody Screen
--- NOTE | 2018-03-09 09:50 | CP.PCM.PN ---
Subjective - Date & Time of Evaluation Date of Evaluation: 03/09/18 Time of Evaluation: 09:46 - Subjective Subjective: Progress note for Dr. Turpin Patient was seen and examined at bedside in no acute distress. Patient was verbal, able to speak without difficulty, and eating without difficulty. He states he is able to move his left lower extremity (back to baseline), but still unable to move his RLE. He says it still difficult to completely open his right hand and it still feels tight. Sensation in his left LE has also returned. Objective - Vital Signs/Intake and Output Vital Signs (last 24 hours): Temp Pulse Resp BP Pulse Ox 97.8 F 67 20 114/72 99 03/09/18 07:33 03/09/18 07:33 03/09/18 07:33 03/09/18 07:33 03/09/18 07:33 - Medications Medications: Current Medications Sodium Chloride (Sodium Chloride 0.9%) 1,000 mls @ 100 mls/hr IV .Q10H [facility] Last Admin: 03/08/18 17:53 Dose: 100 mls/hr Lorazepam (Ativan) 1 mg IVP ONCE PRN PRN Reason: Anxiety Pneumococcal Polyvalent Vaccine (Pneumovax 23 Vaccine) 0.5 ml IM .ONCE ONE Stop: 03/10/18 14:01 Tamsulosin HCl (Flomax) 0.4 mg PO DAILY [facility] - Labs Labs: 03/08/18 08:57 03/08/18 08:57 PT 12.5 SECONDS (9.7-12.2) H 03/08/18 08:57 INR 1.1 03/08/18 08:57 APTT 32 SECONDS (21-34) 03/08/18 08:57 - Additional Findings Additional findings: - Head Exam Head Exam: ATRAUMATIC - Eye Exam Eye Exam: EOMI, PERRL - ENT Exam Additional comments: mucous membranes moist, normal exam - Respiratory Exam Respiratory Exam: NORMAL BREATHING PATTERN. absent: Rales, Wheezes, Respiratory Distress - Cardiovascular Exam Cardiovascular Exam: REGULAR RHYTHM, +S1, +S2 - GI/Abdominal Exam GI & Abdominal Exam: Normal Bowel Sounds, Soft. absent: Tenderness - Extremities Exam Extremities exam: Positive for: pedal pulses present, LLE- normal babinksi, normal reflexes, 5/5 strength. Negative for: full ROM (RLE- 0 movement, diminished reflexes, normal babinski; RUE- clenched fist (improving), and 1-2/5 strength), pedal edema, tenderness - Neurological Exam Neurological exam: Alert, Motor Sensory Deficit, Oriented x3, Reflexes Normal Additional comments: LLE: full rom, sensory and motor intact, normal reflexes, normal babinski RLE: no rom, sensory and motor not intact, diminished reflexes, normal babinski RUE- clenched fist, 2/5 motor strength, sensation intact; LUE- motor and sensory intact, strength 5/5 - Skin Skin Exam: Normal Color, Warm Assessment and Plan - Assessment and Plan (Free Text) Plan: 32 year old male with a history of CVA presented with LE paralysis, trismus, and RUE weakness. Code Stroke was called. Plan: - Acute dystonia syndrome vs. stroke vs. conversion disorder? - Initially, NIH score of 22, but difficult to assess due to patients condition--> patient LLE has returned to baseline function - Head CT: No acute intracranial pathology identified. - Head/Neck CTA: No evidence of significant atherosclerotic disease, evidence of occlusion, significant stenosis or evidence of dissection. No large aneurysm nor vascular malformation. - Brain MRI: unremarkable, no acute or chronic changes - Thoracic spine MRI w/ and w/o ROMELIA: no acute abnormality - Lumbar spine MRI w/ and w/o ROMELIA: no acute abnormality - In the ED, Patient was given stat orders of: Cogentin 1mg IV, Benadryl 50mg IV, Midazolam 1mg IV, and Ativan 1mg IV All imaging negative for acute abnormalities. No evidence of prior stroke on MRI; lumbar and thoracic MRI are essentially normal as well. Currently, there is no explanation for patient symptoms. Psychiatric evaluation for possible conversion disorder. Gave one dose of Haldol 3mg PO overnight on 03/08/18. LLE is now back to baseline and patient no longer aphasic (returned to baseline). Will also consider LP if symptoms continue or worsen and recommended an outpatient nerve conduction studies. Case discussed with Dr. Papi Lau, PGY2
[2018-03-09] MEDS: Pantoprazole 40 mg EC Tab PO SCH (14:04)
--- NOTE | 2018-03-09 15:52 | CP.PCM.PN ---
Subjective - Date & Time of Evaluation Date of Evaluation: 03/09/18 Time of Evaluation: 11:30 - Subjective Subjective: clinically same Objective - Vital Signs/Intake and Output Vital Signs (last 24 hours): Temp Pulse Resp BP Pulse Ox 97.8 F 67 20 114/72 99 03/09/18 07:33 03/09/18 07:33 03/09/18 07:33 03/09/18 07:33 03/09/18 07:33 - Medications Medications: Current Medications Acetaminophen (Tylenol 325mg Tab) 650 mg PO Q6 PRN PRN Reason: PAIN 1-5 Aspirin (Aspirin Chewable) 81 mg PO DAILY [facility] Last Admin: 03/09/18 14:04 Dose: 81 mg Benztropine Mesylate (Cogentin) 0.5 mg PO BID [facility] Sodium Chloride (Sodium Chloride 0.9%) 1,000 mls @ 100 mls/hr IV .Q10H [facility] Last Admin: 03/08/18 17:53 Dose: 100 mls/hr Lactulose (Enulose) 20 gm PO HS [facility] Lorazepam (Ativan) 1 mg IVP ONCE PRN PRN Reason: Anxiety Pantoprazole Sodium (Protonix Ec Tab) 40 mg PO DAILY [facility] Last Admin: 03/09/18 14:04 Dose: 40 mg Pneumococcal Polyvalent Vaccine (Pneumovax 23 Vaccine) 0.5 ml IM .ONCE ONE Stop: 03/10/18 14:01 Tamsulosin HCl (Flomax) 0.4 mg PO DAILY [facility] Last Admin: 03/09/18 10:27 Dose: 0.4 mg - Labs Labs: 03/08/18 08:57 03/08/18 08:57 PT 12.5 SECONDS (9.7-12.2) H 03/08/18 08:57 INR 1.1 03/08/18 08:57 APTT 32 SECONDS (21-34) 03/08/18 08:57 - Constitutional Appears: Well - Head Exam Head Exam: ATRAUMATIC, NORMAL INSPECTION, NORMOCEPHALIC - Eye Exam Eye Exam: EOMI, Normal appearance, PERRL Pupil Exam: NORMAL ACCOMODATION, PERRL - ENT Exam ENT Exam: Mucous Membranes Moist, Normal Exam - Neck Exam Neck Exam: Full ROM, Normal Inspection. absent: Lymphadenopathy - Respiratory Exam Respiratory Exam: Decreased Breath Sounds - Cardiovascular Exam Cardiovascular Exam: REGULAR RHYTHM, +S1, +S2 - GI/Abdominal Exam GI & Abdominal Exam: Soft, Diminished Bowel Sounds - Rectal Exam Rectal Exam: Deferred
--- NOTE | 2018-03-09 19:15 | CP.PCM.CON ---
History of Present Illness - History of Present Illness History of Present Illness: 32 year old male [place] with new onset left sided weakness Referred for ID eval to r/o BANKING CONSULTANT infection Family reportedly wishes to have LP done Since admission now able to speak, open eyes and move left side as before Right side remains weak as per medical records since Surgery/ Anesthesia at [facility] Speech also affected- remains slurred as well as inability to control bowel /bladder PMHx: CVA 01/2018 SurgHx: Left knee surgery many years ago; left inguinal hernia repair 01/2018 FamHx: Mother- HTN SocHx: denies tobacco, alcohol, and drug use. Allergies: NKDA Review of Systems - Review of Systems All systems: reviewed and no additional remarkable complaints except - Constitutional Constitutional: As Per HPI - EENT Eyes: absent: As Per HPI, Blind Spots, Blurred Vision, Change in Vision, Decreased Night Vision, Diplopia, Discharge, Dry Eye, Exophthalmos, Floaters, Irritation, Itchy Eyes, Loss of Peripheral Vision, Pain, Photophobia, Requires Corrective Lenses, Sees Flashes, Spots in Vision, Tunnel Vision, Other Visual Disturbances, Loss of Vision, Other Ears: absent: As Per HPI, Decreased Hearing, Ear Discharge, Ear Pain, Tinnitus, Abnormal Hearing, Disequilibrium, Dizziness, Other Nose/Mouth/Throat: absent: As Per HPI, Epistaxis, Nasal Congestion, Nasal Discharge, Nasal Obstruction, Nasal Trauma, Nose Pain, Post Nasal Drip, Sinus Pain, Sinus Pressure, Bleeding Gums, Change in Voice, Dental Pain, Dry Mouth, Dysphagia, Halitosis, Hoarsness, Lip Swelling, Mouth Lesions, Mouth Pain, Odynophagia, Sore Throat, Throat Swelling, Tongue Swelling, Facial Pain, Neck Pain, Neck Mass, Other - Cardiovascular Cardiovascular: absent: As Per HPI, Acrocyanosis, Chest Pain, Chest Pain at Rest, Chest Pain with Activity, Claudication, Diaphoresis, Dyspnea, Dyspnea on Exertion, Edema, Irregular Heart Rhythm, Pain Radiating to Arm/Neck/Jaw, Leg Edema, Leg Ulcers, Lightheadedness, Orthopnea, Palpitations, Paroxysmal Nocturnal Dyspnea, Pedal Edema, Radiating Pain, Rapid Heart Rate, Slow Heart Rate, Syncope, Other - Respiratory Respiratory: absent: As Per HPI, Cough, Dyspnea, Hemoptysis, Dyspnea on Exertion, Wheezing, Snoring, Stridor, Pain on Inspiration, Chest Congestion, Excessive Mucous Production, Change in Mucous Color, Pain with Coughing, Other - Gastrointestinal Gastrointestinal: absent: As Per HPI, Abdominal Pain, Belching, Bloating, Change in Bowel Habits, Change in Stool Character, Coffee Ground Emesis, Constipation, Cramping, Diarrhea, Dyspepsia, Dysphagia, Early Satiety, Excessive Flatus, Fecal Incontinence, Heartburn, Hematemesis, Hematochezia, Loose Stools, Melena, Nausea, Odynophagia, Temesmus, Vomiting, Other - Genitourinary Genitourinary: absent: As Per HPI, Change in Urinary Stream, Difficulty Urinating, Dysuria, Flank Pain, Hematuria, Pyuria, Nocturia, Urinary Incontinence, Urinary Frequency, Urinary Hesitance, Urinary Urgency, Voiding Freq/Small Amts, Freq UTI, Hx Renal/Bladder Calculi, Hx /Renal Surgery, Blad martin Distension, Other - Musculoskeletal Musculoskeletal: As Per HPI - Integumentary Integumentary: absent: Acne, Alopecia, Bleeding Lesions, Change in Hair, Change in Nails, Change in Pigmentation, Changing Lesions, Dry Skin, Erythema, Furuncle, Hirsutism, Lesions, New Lesions, Non-Healing Lesions, Photosensitivity, Pruritus, Rash, Skin Pain, Skin Ulcer, Sores, Striae, Swelling, Unusual Bruising, Wounds, Jaundice, Other - Neurological Neurological: As Per HPI - Psychiatric Psychiatric: absent: As Per HPI, Abnormal Sleep Pattern, Anhedonia, Anxiety, Auditory Hallucinations, Behavioral Changes, Change in Appetite, Change in Libido, Confusion, Depression, Difficulty Concentrating, Hallucinations, Homicidal Ideation, Hopelessness, Irritability, Memory Loss, Mood Swings, Panic Attacks, Paranoia, Suicidal Ideation, Visual Hallucinations, Tactile Hallucinations, Other - Endocrine Endocrine: absent: As Per HPI, Change in Body Appearance, Change in Libido, Cold Intolorance, Deepening of Voice, Excessive Sweating, Fatigue, Flushing, Heat Intolorance, Increase in Ring/Shoe/Hat Size, Palpitations, Polydipsia, Polyphagia, Polyuria, Other - Hematologic/Lymphatic Hematologic: absent: As Per HPI, Easy Bleeding, Easy Bruising, Lymphadenopathy, Other Past Patient History - Past Medical History & Family History Past Medical History?: No - Past Social History Smoking Status: Never Smoked - CARDIAC Hx Cardiac Disorders: No - PULMONARY Hx Asthma: Yes (Only when pt. was "a little kid") - NEUROLOGICAL Hx Neurological Disorder: No - HEENT Hx HEENT Problems: No - RENAL Hx Chronic Kidney Disease: No - ENDOCRINE/METABOLIC Hx Endocrine Disorders: No - HEMATOLOGICAL/ONCOLOGICAL Hx Human Immunodeficiency Virus (HIV): No - INTEGUMENTARY Hx Dermatological Problems: No Other/Comment: CHICKEN POX - MUSCULOSKELETAL/RHEUMATOLOGICAL Hx Falls: No Other/Comment: - Post-operative extrapyramidal deficit - GASTROINTESTINAL Hx Gastrointestinal Disorders: No - GENITOURINARY/GYNECOLOGICAL Hx Genitourinary Disorders: Yes Other/Comment: - Post-operative urinary retention - PSYCHIATRIC Hx Substance Use: No - SURGICAL HISTORY Hx Surgeries: Yes Hx Orthopedic Surgery: Yes Other/Comment: - 01/11/2018: Laparoscopic left inguinal hernia repair. - 2009: Left knee surgery to remove abscess (+ MRSA). - When patient was [age] years of age: surgery to reattach left middle finger. LEFT 3RD FINGER REPAIR - ANESTHESIA Hx Anesthesia: Yes Hx Anesthesia Reactions: Yes (1) No recollection and no swallowing for about 3 days) Hx Malignant Hyperthermia: No Meds Allergies/Adverse Reactions: Allergies Allergy/AdvReac Type Severity Reaction Status Date / Time No Known Allergies Allergy Verified 03/08/18 07:52 - Medications Medications: Current Medications Acetaminophen (Tylenol 325mg Tab) 650 mg PO Q6 PRN PRN Reason: PAIN 1-5 Aspirin (Aspirin Chewable) 81 mg PO DAILY [facility] Last Admin: 03/09/18 14:04 Dose: 81 mg Benztropine Mesylate (Cogentin) 0.5 mg PO BID [facility] Last Admin: 03/09/18 18:11 Dose: 0.5 mg Sodium Chloride (Sodium Chloride 0.9%) 1,000 mls @ 100 mls/hr IV .Q10H [facility] Last Admin: 03/08/18 17:53 Dose: 100 mls/hr Lactulose (Enulose) 20 gm PO HS [facility] Lorazepam (Ativan) 1 mg IVP ONCE PRN PRN Reason: Anxiety Pantoprazole Sodium (Protonix Ec Tab) 40 mg PO DAILY [facility] Last Admin: 03/09/18 14:04 Dose: 40 mg Pneumococcal Polyvalent Vaccine (Pneumovax 23 Vaccine) 0.5 ml IM .ONCE ONE Stop: 03/10/18 14:01 Tamsulosin HCl (Flomax) 0.4 mg PO DAILY [facility] Last Admin: 03/09/18 10:27 Dose: 0.4 mg Physical Exam - Constitutional Appears: Non-toxic, Chronically Ill - Head Exam Head Exam: NORMOCEPHALIC - Eye Exam Eye Exam: absent: Scleral icterus - ENT Exam ENT Exam: Mucous Membranes Dry - Neck Exam Neck exam: Negative for: Lymphadenopathy - Respiratory Exam Respiratory Exam: Decreased Breath Sounds - Cardiovascular Exam Cardiovascular Exam: REGULAR RHYTHM, +S1, +S2 - GI/Abdominal Exam GI & Abdominal Exam: Diminished Bowel Sounds, Soft. absent: Tenderness - Rectal Exam Rectal Exam: Deferred - Exam Exam: NORMAL INSPECTION - Extremities Exam Extremities exam: Negative for: pedal edema - Back Exam Back exam: absent: CVA tenderness (L), CVA tenderness (R) - Neurological Exam Neurological exam: Alert, CN II-XII Intact, Motor Sensory Deficit, Oriented x3 Additional comments: speech slurred weakness right side upper/ lower - Psychiatric Exam Psychiatric exam: Normal Affect - Skin Skin Exam: Dry Results - Vital Signs Recent Vital Signs: Last Vital Signs Temp 97.9 F 03/09/18 15:05 Pulse 70 03/09/18 15:05 Resp 20 03/09/18 15:05 BP 138/80 03/09/18 15:05 Pulse Ox 98 03/09/18 15:05 - Labs Result Diagrams: 03/08/18 08:57 03/08/18 08:57 Labs: Laboratory Results - last 24 hr 03/08/18 21:18 POC Glucose (mg/dL) 96 Assessment & Plan - Assessment and Plan (Free Text) Assessment: 32 year old male admitted from [place] with new onset left sided weakness Hx of residual weakness right side and speech deficit as well as incontinence s/p surgery in Jan 2018 at [facility] Name Referred for ID eval to r/o BANKING CONSULTANT infection Family reportedly wishes to have LP done Since admission now able to speak, open eyes and move left side as before patient has no signs of BANKING CONSULTANT infection at this time LP not definitely indicated at present- no fever or signs of BANKING CONSULTANT infection Neurology on board- if family insists can have IR do LP
[2018-03-09] MEDS: Sodium Chloride 0.9% 1,000 ML IV SCH (22:07)
--- NOTE | 2018-03-09 22:15 | CARD ---
APPROVED REPORT Date of service: 03/08/2018 EKG Measurement Heart [id number] <Conclusion> Normal sinus rhythm Normal ECG
--- NOTE | 2018-03-09 23:42 | PCM.PSYCH ---
Initial Psychiatric Evaluation - Initial Psychiatric Evaluation Type of Admission: Voluntary Legal Status: Capacity Chief Complaint (in patient's own words): I cannot move my right side of the body.' History of Present Illness and Precipitating Events: Patient ([id number] Bernabe is a 32 year old male who is currently single, lives with his mom, works as a mortician, and came to the hospital Tuesday due to possible stroke-like symptoms. The patient states that when he woke up on Tuesday, he could only open his eyes, but couldn't speak or move. Today patient was seen by the psychiatric team. Two months ago, the patient was undergoing a hernia surgery where he experienced a stroke that caused him to not be able to move the right side of his body, or speak. The stroke he had during the hernia surgery also caused him to have problems with bowel movements. The patient was seeing a therapist for his stroke symptoms at a stroke rehab center in [facility]. Patient denies any past history of any inpatient psychiatric hospitalizations and denies any past history of follow-up with any psychiatrist. Patient denies alcohol or drug abuse. He smokes a cigar every once in a while. He denies having any racing thoughts, or visual or auditory hallucinations. He denies any suicidal ideation or any homicidal ideation. Past Psych History: Denies Past Family Psych History: Denies Past Medical History: Denies Medications: Takes laxatives to help him use the bathroom. Current Medications: Active Medications Generic Name Dose Route Start Last Admin Trade Name Freq PRN Reason Stop Dose Admin Acetaminophen 650 mg 03/09/18 13:20 Tylenol 325mg Tab PO Q6 PRN PAIN 1-5 Aspirin 81 mg 03/09/18 13:30 03/09/18 14:04 Aspirin Chewable PO 81 mg DAILY [facility] Administration Benztropine Mesylate 0.5 mg 03/09/18 18:00 03/09/18 18:11 Cogentin PO 0.5 mg BID [facility] Administration Sodium Chloride 1,000 mls @ 100 mls/hr 03/08/18 17:00 03/09/18 22:07 Sodium Chloride 0.9% IV 100 mls/hr .Q10H [facility] Administration Lactulose 20 gm 03/09/18 22:00 03/09/18 21:27 Enulose PO 20 gm HS [facility] Administration Lorazepam 1 mg 03/08/18 10:30 Ativan IVP ONCE PRN Anxiety Pantoprazole Sodium 40 mg 03/09/18 13:30 03/09/18 14:04 Protonix Ec Tab PO 40 mg DAILY [facility] Administration Pneumococcal Polyvalent Vaccine 0.5 ml 03/10/18 14:00 Pneumovax 23 Vaccine IM 03/10/18 14:01 .ONCE ONE Tamsulosin HCl 0.4 mg 03/09/18 10:00 03/09/18 10:27 Flomax PO 0.4 mg DAILY [facility] Administration Past Psychiatric History - Past Psychiatric History Previous Treatment History: None Pertinent Medical Hx (Current Medical&Sleep Prob, Allergies): Allergies Allergy/AdvReac Type Severity Reaction Status Date / Time No Known Allergies Allergy Verified 03/08/18 07:52 Acetaminophen [Tylenol Extra Strength] 1,000 mg PO PRN PRN 01/20/18 Benztropine [Cogentin] 0.5 mg PO DAILY [facility] x2 01/20/18 Ibuprofen [Motrin Tab] 800 mg PO Q8H PRN 01/20/18 traMADol [Ultram] 50 mg PO Q8H PRN 01/20/18 Acetaminophen [Tylenol 325mg tab] 650 mg PO Q6 PRN tab 02/10/18 Amitiza 24 mcg PO Q12 02/10/18 Aspirin [Aspirin Chewable] 81 mg PO DAILY chew 02/10/18 Docusate Sodium/Sennosides A [Senokot S 50 MG-8.6 MG] 2 tab PO HS tab 02/10/18 Ibuprofen [Motrin Tab] 600 mg PO Q8 PRN tab 02/10/18 Lactulose [Enulose] 20 gm PO Q8 PRN udc 02/10/18 Pantoprazole [Protonix EC Tab] 40 mg PO DAILY ect 02/10/18 Simethicone [Mylicon Chew Tab] 80 mg PO Q8 PRN chew 02/10/18 Review of Systems - Review of Systems All systems: reviewed and no additional remarkable complaints except - Psychiatric Psychiatric: Anxiety. absent: Irritability, Suicidal Ideation Mental Status Examination - Personal Presentation Personal Presentation: Looks stated age - Affect Affect: Constricted - Motor Activity Motor Activity: Calm - Reliability in Providing Information Reliability in Providing Information: Fair - Speech Speech: Organized - Mood Mood: Anxious - Formal Thought Process Formal Thought Process: No Impairment - Obsessions/Compulsions Obsessions: No Compulsions: No - Cognitive Functions Orientation: Person, Place, Situation, Time Sensorium: Alert Attention/Concentration: Attentive Abstract Thinking: [place] Estimate of Intelligence: Below average Judgement: Intact, as evidence by: Good judgement, Intact, as evidence by: Insight regarding need for hospitalization - Risk Risk: Diminished functioning - Strength & Assets Inventory Strength & Assets Inventory: Family support DSM 5 DX - DSM 5 DSM 5 Diagnosis: Adjustment disorder with anxious mood - Recommended/Plan of Treatment Treatment Recommendations and Plan of Treatment: Adjustment disorder with anxious mood Supportive therapy Patient is psychiatrically stable and cleared.
--- NOTE | 2018-03-10 07:12 | CP.PCM.CON ---
History of Present Illness - History of Present Illness History of Present Illness: CONSULTATION DICTATED POSSIBLE MISTY'S PARESIS RIGHT HEMIPARESIS ?? CAUSE NEEDS MRI BRAIN AND C/SPINE WITH [facility] PT /EEG/ANTIPLATELETS ANY RECURRENT EPISODE WILL START AED WILL OBSERVE AND WILL DISCUSS WITH HIS BROTHER IT IS NOT SLEEP PARALYSIS Past Patient History - Past Medical History & Family History Past Medical History?: No - Past Social History Smoking Status: Never Smoked - CARDIAC Hx Cardiac Disorders: No - PULMONARY Hx Asthma: Yes (Only when pt. was "a little kid") - NEUROLOGICAL Hx Neurological Disorder: No - HEENT Hx HEENT Problems: No - RENAL Hx Chronic Kidney Disease: No - ENDOCRINE/METABOLIC Hx Endocrine Disorders: No - HEMATOLOGICAL/ONCOLOGICAL Hx Human Immunodeficiency Virus (HIV): No - INTEGUMENTARY Hx Dermatological Problems: No Other/Comment: CHICKEN POX - MUSCULOSKELETAL/RHEUMATOLOGICAL Hx Falls: No Other/Comment: - Post-operative extrapyramidal deficit - GASTROINTESTINAL Hx Gastrointestinal Disorders: No - GENITOURINARY/GYNECOLOGICAL Hx Genitourinary Disorders: Yes Other/Comment: - Post-operative urinary retention - PSYCHIATRIC Hx Substance Use: No - SURGICAL HISTORY Hx Surgeries: Yes Hx Orthopedic Surgery: Yes Other/Comment: - 01/11/2018: Laparoscopic left inguinal hernia repair. - 2009: Left knee surgery to remove abscess (+ MRSA). - When patient was [age] years of age: surgery to reattach left middle finger. LEFT 3RD FINGER REPAIR - ANESTHESIA Hx Anesthesia: Yes Hx Anesthesia Reactions: Yes (1) No recollection and no swallowing for about 3 days) Hx Malignant Hyperthermia: No Meds Allergies/Adverse Reactions: Allergies Allergy/AdvReac Type Severity Reaction Status Date / Time No Known Allergies Allergy Verified 03/08/18 07:52 - Medications Medications: Current Medications Acetaminophen (Tylenol 325mg Tab) 650 mg PO Q6 PRN PRN Reason: PAIN 1-5 Aspirin (Aspirin Chewable) 81 mg PO DAILY [facility] Last Admin: 03/09/18 14:04 Dose: 81 mg Benztropine Mesylate (Cogentin) 0.5 mg PO BID [facility] Last Admin: 03/09/18 18:11 Dose: 0.5 mg Sodium Chloride (Sodium Chloride 0.9%) 1,000 mls @ 100 mls/hr IV .Q10H [facility] Last Admin: 03/09/18 22:07 Dose: 100 mls/hr Lactulose (Enulose) 20 gm PO HS [facility] Last Admin: 03/09/18 21:27 Dose: 20 gm Lorazepam (Ativan) 1 mg IVP ONCE PRN PRN Reason: Anxiety Pantoprazole Sodium (Protonix Ec Tab) 40 mg PO DAILY [facility] Last Admin: 03/09/18 14:04 Dose: 40 mg Pneumococcal Polyvalent Vaccine (Pneumovax 23 Vaccine) 0.5 ml IM .ONCE ONE Stop: 03/10/18 14:01 Tamsulosin HCl (Flomax) 0.4 mg PO DAILY [facility] Last Admin: 03/09/18 10:27 Dose: 0.4 mg Results - Vital Signs Recent Vital Signs: Last Vital Signs Temp 97.9 F 03/09/18 23:45 Pulse 61 03/10/18 04:00 Resp 20 03/09/18 23:45 BP 114/81 03/09/18 23:45 Pulse Ox 96 03/09/18 23:45 - Labs Result Diagrams: 03/08/18 08:57 03/08/18 08:57 Labs: Laboratory Results - last 24 hr 03/09/18 03/09/18 03/09/18 06:09 11:32 17:28 POC Glucose (mg/dL) 80 122 H 111 H 03/09/18 03/10/18 21:22 06:17 POC Glucose (mg/dL) 130 H 91
[2018-03-10] MEDS: Pantoprazole 40 mg EC Tab PO SCH (09:41)
[2018-03-10] MEDS: Simethicone 80 mg Chewtab PO SCH ×2 (13:21→21:50)
[2018-03-10] MEDS ORDERED: Pneumococcal 23-Valent Vaccine IM ONE (14:00)
--- NOTE | 2018-03-10 14:34 | CP.PCM.PN ---
Subjective - Date & Time of Evaluation Date of Evaluation: 03/10/18 Time of Evaluation: 11:00 - Subjective Subjective: clinically same Objective - Vital Signs/Intake and Output Vital Signs (last 24 hours): Temp Pulse Resp BP Pulse Ox 97.5 F L 64 20 111/66 98 03/10/18 07:30 03/10/18 07:39 03/10/18 07:30 03/10/18 07:30 03/10/18 07:30 Intake and Output: 03/10/18 03/10/18 06:59 18:59 Output Total 1000 Balance -1000 - Medications Medications: Current Medications Acetaminophen (Tylenol 325mg Tab) 650 mg PO Q6 PRN PRN Reason: PAIN 1-5 Aspirin (Aspirin Chewable) 81 mg PO DAILY [facility] Last Admin: 03/10/18 09:41 Dose: 81 mg Benztropine Mesylate (Cogentin) 0.5 mg PO BID [facility] Last Admin: 03/10/18 09:42 Dose: 0.5 mg Sodium Chloride (Sodium Chloride 0.9%) 1,000 mls @ 100 mls/hr IV .Q10H [facility] Last Admin: 03/09/18 22:07 Dose: 100 mls/hr Lactulose (Enulose) 20 gm PO Q8H [facility] Last Admin: 03/10/18 13:21 Dose: 20 gm Lorazepam (Ativan) 1 mg IVP ONCE PRN PRN Reason: Anxiety Pantoprazole Sodium (Protonix Ec Tab) 40 mg PO DAILY [facility] Last Admin: 03/10/18 09:41 Dose: 40 mg Rosuvastatin Calcium (Crestor) 5 mg PO HS [facility] Senna/Docusate Sodium (Senokot S 50 Mg-8.6 Mg) 2 tab PO HS [facility] Simethicone (Mylicon Chew Tab) 80 mg PO Q8H [facility] Last Admin: 03/10/18 13:21 Dose: 80 mg Tamsulosin HCl (Flomax) 0.4 mg PO DAILY [facility] Last Admin: 03/10/18 09:41 Dose: 0.4 mg - Labs Labs: 03/08/18 08:57 03/08/18 08:57 PT 12.5 SECONDS (9.7-12.2) H 03/08/18 08:57 INR 1.1 03/08/18 08:57 APTT 32 SECONDS (21-34) 03/08/18 08:57 - Constitutional Appears: Well - Head Exam Head Exam: ATRAUMATIC, NORMAL INSPECTION, NORMOCEPHALIC - Eye Exam Eye Exam: EOMI, Normal appearance, PERRL Pupil Exam: NORMAL ACCOMODATION, PERRL - ENT Exam ENT Exam: Mucous Membranes Moist, Normal Exam - Neck Exam Neck Exam: Full ROM, Normal Inspection. absent: Lymphadenopathy - Respiratory Exam Respiratory Exam: Decreased Breath Sounds - Cardiovascular Exam Cardiovascular Exam: REGULAR RHYTHM, +S1, +S2 - GI/Abdominal Exam GI & Abdominal Exam: Soft, Diminished Bowel Sounds - Rectal Exam Rectal Exam: Deferred
--- NOTE | 2018-03-10 14:48 | CON ---
DATE: 03/10/2018 This is neurological initial consultation. This is a second opinion. REASON FOR CONSULTATION: New neurological complications from stroke. CHIEF COMPLAINT: The patient was brought into [facility] from the long term with a history of clenching of mouth and increased tone on his both upper and lower extremities which is not associating with any bowel and bladder incontinence. No history of bitten tongue. This episode lasted for about few hours and the patient woke up in the emergency room with residual weakness of his right side which is not changed from his previous a insult of the stroke. Never had this problem in the past. History of two months ago, he had a stroke following hernia surgery in [facility]. Following stroke, he went to [facility] from there to [facility]. His weakness is mostly on the right leg, very minimal mobility of his right leg. However, he could ambulate with significant physical assistance. At present, denies headache. Denies double vision. Denies visual or bulbar dysfunction. However, his speech is impaired from his old stroke. PAST MEDICAL HISTORY: Asthma, stroke. PERSONAL HISTORY Denies smoking, alcohol use. ALLERGIES: NO KNOWN ALLERGIES. REVIEW OF SYSTEMS: A 12-point system being reviewed. From neuro, new weakness of his left side with some tightness of his whole body. MEDICATIONS: Aspirin, Cogentin, Enolase, Flomax, Protonix, IV fluids. PHYSICAL EXAMINATION: VITAL SIGNS: Blood pressure 114/81, mean artery pressure of 92, respiratory rate 18, temperature 97.9 with a pulse rate of 61 and regular. NECK: Supple. No carotid bruits. HEART: Sounds regular. CHEST: Fair air entry. EXTREMITIES: No edema in legs. The right leg is externally rotated. NEUROLOGIC EXAMINATION: Mental status examination, he is awake, alert and or to person, place and time. Significant retrograde amnesia. No antegrade amnesia. No hallucination. No suicidal ideation. No sign of depression. Cranial nerve examination, visual field intact. Pupils reactive to light. Extraocular movement normal. No nystagmus. No facial sensory deficit. There is mild asymmetry noted on the flattening of the right nasolabial fold. Hearing is normal. Tongue is midline. Good gag. Motor examination on outstretched hand with eyes closed right hand shows curving of the fingers. No drift noted. The right leg is 0/5. Deep tendon reflexes absent. Plantars are mute on the right side, left side was upgoing. Sensory examination, significant pinprick and touch and temperature decreased on his right side. Coordination: Finger-nose test is intact on his left side. Gait: Deferred at this time. CONCLUSION: Mr. 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 Cause for the seizures could be from his old stroke. However, other possible causes of her for electrolyte imbalance should be ruled out. The patient examination shows left Babinski sign which is not unexplained. MRI of the brain and CAT scan which is also not explained his previous stroke. RECOMMENDATIONS: 1. I would like to repeat MRI of the brain and neck with gadolinium to rule out any demyelinating process. 2. Electroencephalogram should be done to rule out any paroxysmal activities. If any recurrent episodes that time I will start antiepileptic drugs. Otherwise I would like to continue observation. 3. DVT prophylaxis and get him out of the bed and physical therapy should be initiated. The patient all workup being reviewed and radiological or electrolyte imbalance that could explain his current problem. The patient condition will be discussed with the family members. The patient will be followed closely while he is in the hospital. Win Jovel MD MTDD
--- NOTE | 2018-03-10 15:51 | CP.PCM.PCO ---
Physician Communication Note - Physician Communication Note Physician Communication Note: dr. alessandro toussaint on case; letha/dee team will sign off. thanks.
--- NOTE | 2018-03-10 18:15 | CP.PCM.PN ---
Subjective - Date & Time of Evaluation Date of Evaluation: 03/10/18 Time of Evaluation: 08:00 - Subjective Subjective: no fever headache alert oriented back to baseline Objective - Vital Signs/Intake and Output Vital Signs (last 24 hours): Temp Pulse Resp BP Pulse Ox 98.2 F 72 20 115/65 98 03/10/18 15:05 03/10/18 16:08 03/10/18 15:05 03/10/18 15:05 03/10/18 15:05 Intake and Output: 03/10/18 03/10/18 06:59 18:59 Output Total 1000 Balance -1000 - Medications Medications: Current Medications Acetaminophen (Tylenol 325mg Tab) 650 mg PO Q6 PRN PRN Reason: PAIN 1-5 Aspirin (Aspirin Chewable) 81 mg PO DAILY [facility] Last Admin: 03/10/18 09:41 Dose: 81 mg Benztropine Mesylate (Cogentin) 0.5 mg PO BID [facility] Last Admin: 03/10/18 17:55 Dose: 0.5 mg Sodium Chloride (Sodium Chloride 0.9%) 1,000 mls @ 100 mls/hr IV .Q10H [facility] Last Admin: 03/09/18 22:07 Dose: 100 mls/hr Lactulose (Enulose) 20 gm PO Q8H [facility] Last Admin: 03/10/18 13:21 Dose: 20 gm Lorazepam (Ativan) 1 mg IVP ONCE PRN PRN Reason: Anxiety Pantoprazole Sodium (Protonix Ec Tab) 40 mg PO DAILY [facility] Last Admin: 03/10/18 09:41 Dose: 40 mg Rosuvastatin Calcium (Crestor) 5 mg PO [facility] Senna/Docusate Sodium (Senokot S 50 Mg-8.6 Mg) 2 tab PO [facility] Simethicone (Mylicon Chew Tab) 80 mg PO Q8H [facility] Last Admin: 03/10/18 13:21 Dose: 80 mg Tamsulosin HCl (Flomax) 0.4 mg PO DAILY [facility] Last Admin: 03/10/18 09:41 Dose: 0.4 mg - Labs Labs: 03/08/18 08:57 03/08/18 08:57 PT 12.5 SECONDS (9.7-12.2) H 03/08/18 08:57 INR 1.1 03/08/18 08:57 APTT 32 SECONDS (21-34) 03/08/18 08:57 - Constitutional Appears: Non-toxic, Chronically Ill - Head Exam Head Exam: NORMOCEPHALIC - Eye Exam Eye Exam: absent: Scleral icterus - ENT Exam ENT Exam: Mucous Membranes Dry - Neck Exam Neck Exam: absent: Lymphadenopathy - Respiratory Exam Respiratory Exam: Decreased Breath Sounds - Cardiovascular Exam Cardiovascular Exam: REGULAR RHYTHM - GI/Abdominal Exam GI & Abdominal Exam: Distended - Rectal Exam Rectal Exam: Deferred - Extremities Exam Extremities Exam: absent: Normal Inspection - Back Exam Back Exam: absent: CVA tenderness (L), CVA tenderness (R) - Neurological Exam Neurological Exam: Alert, Awake, CN II-XII Intact, Motor Sensory Deficit, Oriented x3 Neuro motor strength exam: Left Upper Extremity: 5, Right Upper Extremity: 3, Left Lower Extremity: 5, Right Lower Extremity: 3 - Psychiatric Exam Psychiatric exam: Depressed - Skin Skin Exam: Dry Assessment and Plan (1) Dystonia Status: Acute (2) Leg weakness Status: Acute - Assessment and Plan (Free Text) Assessment: dr alessandro tay for LP
[2018-03-10] MEDS: Sodium Chloride 0.9% 1,000 ML IV SCH (20:02)
[2018-03-10] MEDS: Docusate-Senna 50 mg-8.6 mg Tab PO SCH (21:50)
[2018-03-11] MEDS: Simethicone 80 mg Chewtab PO SCH ×3 (05:46→22:12)
[2018-03-11] MEDS: Pantoprazole 40 mg EC Tab PO SCH (09:53)
[2018-03-11] MEDS ORDERED: Bisacodyl 5mg EC Tab PO ONE (14:30)
--- NOTE | 2018-03-11 18:02 | CP.PCM.PN ---
Subjective - Date & Time of Evaluation Date of Evaluation: 03/11/18 Time of Evaluation: 09:45 - Subjective Subjective: clinically same Objective - Vital Signs/Intake and Output Vital Signs (last 24 hours): Temp Pulse Resp BP Pulse Ox 97.8 F 67 20 118/76 98 03/11/18 17:58 03/11/18 17:58 03/11/18 17:58 03/11/18 17:58 03/11/18 17:58 Intake and Output: 03/11/18 03/11/18 06:59 18:59 Output Total 1400 Balance -1400 - Medications Medications: Current Medications Acetaminophen (Tylenol 325mg Tab) 650 mg PO Q6 PRN PRN Reason: PAIN 1-5 Aspirin (Aspirin Chewable) 81 mg PO DAILY [facility] Last Admin: 03/11/18 09:53 Dose: 81 mg Benztropine Mesylate (Cogentin) 0.5 mg PO BID [facility] Last Admin: 03/11/18 17:27 Dose: 0.5 mg Lactulose (Enulose) 20 gm PO Q8H [facility] Last Admin: 03/11/18 14:27 Dose: 20 gm Lorazepam (Ativan) 1 mg IVP ONCE PRN PRN Reason: Anxiety Pantoprazole Sodium (Protonix Ec Tab) 40 mg PO DAILY [facility] Last Admin: 03/11/18 09:53 Dose: 40 mg Rosuvastatin Calcium (Crestor) 5 mg PO HS [facility] Last Admin: 03/10/18 21:50 Dose: 5 mg Senna/Docusate Sodium (Senokot S 50 Mg-8.6 Mg) 2 tab PO HS [facility] Last Admin: 03/10/18 21:50 Dose: 2 tab Simethicone (Mylicon Chew Tab) 80 mg PO Q8H [facility] Last Admin: 03/11/18 14:27 Dose: 80 mg Tamsulosin HCl (Flomax) 0.4 mg PO DAILY [facility] Last Admin: 03/11/18 09:53 Dose: 0.4 mg - Labs Labs: 03/08/18 08:57 03/08/18 08:57 PT 12.5 SECONDS (9.7-12.2) H 03/08/18 08:57 INR 1.1 03/08/18 08:57 APTT 32 SECONDS (21-34) 03/08/18 08:57 - Constitutional Appears: Well - Head Exam Head Exam: ATRAUMATIC, NORMAL INSPECTION, NORMOCEPHALIC - Eye Exam Eye Exam: EOMI, Normal appearance, PERRL Pupil Exam: NORMAL ACCOMODATION, PERRL - ENT Exam ENT Exam: Mucous Membranes Moist, Normal Exam - Neck Exam Neck Exam: Full ROM, Normal Inspection. absent: Lymphadenopathy - Respiratory Exam Respiratory Exam: Decreased Breath Sounds - Cardiovascular Exam Cardiovascular Exam: REGULAR RHYTHM, +S1, +S2 - GI/Abdominal Exam GI & Abdominal Exam: Soft, Diminished Bowel Sounds - Rectal Exam Rectal Exam: Deferred
[2018-03-11] MEDS: Docusate-Senna 50 mg-8.6 mg Tab PO SCH (22:12)
[2018-03-12] MEDS: Simethicone 80 mg Chewtab PO SCH ×3 (06:10→21:38)
[2018-03-12] MEDS: Pantoprazole 40 mg EC Tab PO SCH (10:29)
--- NOTE | 2018-03-12 12:16 | CP.PCM.PN ---
Subjective - Date & Time of Evaluation Date of Evaluation: 03/12/18 Time of Evaluation: 09:45 - Subjective Subjective: clinically same Objective - Vital Signs/Intake and Output Vital Signs (last 24 hours): Temp Pulse Resp BP Pulse Ox 98.4 F 65 20 100/57 L 98 03/12/18 07:00 03/12/18 08:00 03/12/18 07:00 03/12/18 07:00 03/12/18 07:00 Intake and Output: 03/12/18 03/12/18 06:59 18:59 Intake Total 800 Output Total 750 Balance 50 - Medications Medications: Current Medications Acetaminophen (Tylenol 325mg Tab) 650 mg PO Q6 PRN PRN Reason: PAIN 1-5 Aspirin (Aspirin Chewable) 81 mg PO DAILY [facility] Last Admin: 03/12/18 10:29 Dose: 81 mg Benztropine Mesylate (Cogentin) 0.5 mg PO BID [facility] Last Admin: 03/12/18 10:29 Dose: 0.5 mg Lactulose (Enulose) 20 gm PO Q8H [facility] Last Admin: 03/12/18 06:10 Dose: 20 gm Lorazepam (Ativan) 1 mg IVP ONCE PRN PRN Reason: Anxiety Pantoprazole Sodium (Protonix Ec Tab) 40 mg PO DAILY [facility] Last Admin: 03/12/18 10:29 Dose: 40 mg Rosuvastatin Calcium (Crestor) 5 mg PO HS [facility] Last Admin: 03/11/18 22:12 Dose: 5 mg Senna/Docusate Sodium (Senokot S 50 Mg-8.6 Mg) 2 tab PO HS [facility] Last Admin: 03/11/18 22:12 Dose: 2 tab Simethicone (Mylicon Chew Tab) 80 mg PO Q8H [facility] Last Admin: 03/12/18 06:10 Dose: 80 mg Tamsulosin HCl (Flomax) 0.4 mg PO DAILY [facility] Last Admin: 03/12/18 10:29 Dose: 0.4 mg - Labs Labs: 03/08/18 08:57 03/08/18 08:57 PT 12.5 SECONDS (9.7-12.2) H 03/08/18 08:57 INR 1.1 03/08/18 08:57 APTT 32 SECONDS (21-34) 03/08/18 08:57 - Constitutional Appears: Well - Head Exam Head Exam: ATRAUMATIC, NORMAL INSPECTION, NORMOCEPHALIC - Eye Exam Eye Exam: EOMI, Normal appearance, PERRL Pupil Exam: NORMAL ACCOMODATION, PERRL - ENT Exam ENT Exam: Mucous Membranes Moist, Normal Exam - Neck Exam Neck Exam: Full ROM, Normal Inspection. absent: Lymphadenopathy - Respiratory Exam Respiratory Exam: Decreased Breath Sounds - Cardiovascular Exam Cardiovascular Exam: REGULAR RHYTHM, +S1, +S2 - GI/Abdominal Exam GI & Abdominal Exam: Soft, Diminished Bowel Sounds - Rectal Exam Rectal Exam: Deferred
--- NOTE | 2018-03-12 13:48 | CP.PCM.PN ---
Subjective - Date & Time of Evaluation Date of Evaluation: 03/12/18 Time of Evaluation: 07:00 - Subjective Subjective: about the same awake alert nad denies fever or chills Objective - Vital Signs/Intake and Output Vital Signs (last 24 hours): Temp Pulse Resp BP Pulse Ox 98.4 F 65 20 100/57 L 98 03/12/18 07:00 03/12/18 08:00 03/12/18 07:00 03/12/18 07:00 03/12/18 07:00 Intake and Output: 03/12/18 03/12/18 06:59 18:59 Intake Total 800 Output Total 750 Balance 50 - Medications Medications: Current Medications Acetaminophen (Tylenol 325mg Tab) 650 mg PO Q6 PRN PRN Reason: PAIN 1-5 Aspirin (Aspirin Chewable) 81 mg PO DAILY [facility] Last Admin: 03/12/18 10:29 Dose: 81 mg Benztropine Mesylate (Cogentin) 0.5 mg PO BID [facility] Last Admin: 03/12/18 10:29 Dose: 0.5 mg Lactulose (Enulose) 20 gm PO Q8H [facility] Last Admin: 03/12/18 13:33 Dose: 20 gm Lorazepam (Ativan) 1 mg IVP ONCE PRN PRN Reason: Anxiety Pantoprazole Sodium (Protonix Ec Tab) 40 mg PO DAILY [facility] Last Admin: 03/12/18 10:29 Dose: 40 mg Rosuvastatin Calcium (Crestor) 5 mg PO HS [facility] Last Admin: 03/11/18 22:12 Dose: 5 mg Senna/Docusate Sodium (Senokot S 50 Mg-8.6 Mg) 2 tab PO [facility] Last Admin: 03/11/18 22:12 Dose: 2 tab Simethicone (Mylicon Chew Tab) 80 mg PO Q8H [facility] Last Admin: 03/12/18 13:33 Dose: 80 mg Tamsulosin HCl (Flomax) 0.4 mg PO DAILY [facility] Last Admin: 03/12/18 10:29 Dose: 0.4 mg - Labs Labs: 03/08/18 08:57 03/08/18 08:57 PT 12.5 SECONDS (9.7-12.2) H 03/08/18 08:57 INR 1.1 03/08/18 08:57 APTT 32 SECONDS (21-34) 03/08/18 08:57 - Constitutional Appears: Non-toxic, Chronically Ill - Head Exam Head Exam: NORMOCEPHALIC - Eye Exam Eye Exam: absent: Scleral icterus - ENT Exam ENT Exam: Mucous Membranes Dry - Neck Exam Neck Exam: absent: Lymphadenopathy - Respiratory Exam Respiratory Exam: Decreased Breath Sounds, Clear to Ausculation Bilateral - Cardiovascular Exam Cardiovascular Exam: REGULAR RHYTHM - GI/Abdominal Exam GI & Abdominal Exam: Distended, Soft. absent: Tenderness - Rectal Exam Rectal Exam: Deferred - Exam Exam: NORMAL INSPECTION - Extremities Exam Extremities Exam: absent: Pedal Edema - Back Exam Back Exam: absent: CVA tenderness (L), CVA tenderness (R) - Neurological Exam Neurological Exam: Alert, Awake, CN II-XII Intact, Motor Sensory Deficit, Oriented x3 - Psychiatric Exam Psychiatric exam: Depressed Assessment and Plan (1) Dystonia Status: Acute (2) Leg weakness Status: Acute - Assessment and Plan (Free Text) Assessment: await neuro eval dr Jovel cont rx as ordered
[2018-03-12] MEDS: Enoxaparin 40 mg Syringe SC SCH (17:43)
[2018-03-12] MEDS: Docusate-Senna 50 mg-8.6 mg Tab PO SCH (21:38)
[2018-03-13] MEDS: Simethicone 80 mg Chewtab PO SCH ×3 (05:45→21:57)
[2018-03-13] MEDS: Pantoprazole 40 mg EC Tab PO SCH (09:46)
[2018-03-13] MEDS: Enoxaparin 40 mg Syringe SC SCH (09:47)
--- NOTE | 2018-03-13 10:00 | PN ---
DATE: 03/13/2018 TIME OF EVALUATION: 6:40 a.m. 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 Previous stroke manifesting with right-sided hemiplegia with dysarthria. PHYSICAL EXAMINATION: VITAL SIGNS: Blood pressure 118/72, mean arterial pressure of 87, respiratory rate 18, temperature 97.7, pulse rate 74. GENERAL: The patient is comfortably lying down, easily arousable on calling his name. Complaining of right leg swelling. NEUROLOGIC EXAMINATION: Unchanged comparing with previous examination. DIAGNOSTIC DATA: The patient has been recommended MRI of the brain with gadolinium and cervical spine with and without gadolinium and are still pending. Electroencephalogram is still pending. RECOMMENDATION: Continue the present management. Continue the DVT prophylaxis. The patient will be followed following the workup is completed. The patient will be followed closely with you. Win Jovel MD
[2018-03-13 10:12] LABS: HEPATITIS B SURFACE AG Negative (NEGATIVE)
[2018-03-13 10:18] LABS: HEPATITIS A IGM NEGATIVE (NEGATIVE); HEPATITIS B CORE AB NEGATIVE (NEGATIVE)
[2018-03-13 10:30] LABS: HEPATITIS C ANTIBODY NEGATIVE (NEGATIVE)
--- NOTE | 2018-03-13 11:36 | CP.PCM.PN ---
Subjective - Date & Time of Evaluation Date of Evaluation: 03/13/18 Time of Evaluation: 07:00 - Subjective Subjective: c/o swelling right leg alert responsive right side weak as before Objective - Vital Signs/Intake and Output Vital Signs (last 24 hours): Temp Pulse Resp BP Pulse Ox 97.8 F 60 20 99/60 L 97 03/13/18 07:35 03/13/18 08:00 03/13/18 07:35 03/13/18 07:35 03/13/18 07:35 Intake and Output: 03/13/18 03/13/18 06:59 18:59 Output Total 700 Balance -700 - Medications Medications: Current Medications Acetaminophen (Tylenol 325mg Tab) 650 mg PO Q6 PRN PRN Reason: PAIN 1-5 Aspirin (Aspirin Chewable) 81 mg PO DAILY [facility] Last Admin: 03/13/18 09:46 Dose: 81 mg Benztropine Mesylate (Cogentin) 0.5 mg PO BID [facility] Last Admin: 03/13/18 09:46 Dose: 0.5 mg Enoxaparin Sodium (Lovenox) 40 mg SC DAILY [facility] Last Admin: 03/13/18 09:47 Dose: 40 mg Lactulose (Enulose) 20 gm PO Q8H [facility] Last Admin: 03/13/18 05:45 Dose: 20 gm Lorazepam (Ativan) 1 mg IVP ONCE PRN PRN Reason: Anxiety Pantoprazole Sodium (Protonix Ec Tab) 40 mg PO DAILY [facility] Last Admin: 03/13/18 09:46 Dose: 40 mg Rosuvastatin Calcium (Crestor) 5 mg PO HS [facility] Last Admin: 03/12/18 21:38 Dose: 5 mg Senna/Docusate Sodium (Senokot S 50 Mg-8.6 Mg) 2 tab PO HS [facility] Last Admin: 03/12/18 21:38 Dose: 2 tab Simethicone (Mylicon Chew Tab) 80 mg PO Q8H [facility] Last Admin: 03/13/18 05:45 Dose: 80 mg Tamsulosin HCl (Flomax) 0.4 mg PO DAILY [facility] Last Admin: 03/13/18 09:47 Dose: 0.4 mg - Labs Labs: 03/08/18 08:57 03/08/18 08:57 PT 12.5 SECONDS (9.7-12.2) H 03/08/18 08:57 INR 1.1 03/08/18 08:57 APTT 32 SECONDS (21-34) 03/08/18 08:57 - Constitutional Appears: Non-toxic, Chronically Ill - Head Exam Head Exam: NORMOCEPHALIC - Eye Exam Eye Exam: absent: Scleral icterus - ENT Exam ENT Exam: Mucous Membranes Dry - Neck Exam Neck Exam: absent: Lymphadenopathy - Respiratory Exam Respiratory Exam: Decreased Breath Sounds - Cardiovascular Exam Cardiovascular Exam: REGULAR RHYTHM - GI/Abdominal Exam GI & Abdominal Exam: Distended - Rectal Exam Rectal Exam: Deferred - Extremities Exam Extremities Exam: absent: Calf Tenderness, Pedal Edema - Back Exam Back Exam: absent: CVA tenderness (L), CVA tenderness (R) - Neurological Exam Neurological Exam: Alert, Awake, CN II-XII Intact, Motor Sensory Deficit Neuro motor strength exam: Left Upper Extremity: 5, Right Upper Extremity: 3, Left Lower Extremity: 5, Right Lower Extremity: 2/1 Additional comments: right side weak - Psychiatric Exam Psychiatric exam: Depressed - Skin Skin Exam: Dry Assessment and Plan (1) Dystonia Status: Acute (2) Leg weakness Status: Acute - Assessment and Plan (Free Text) Assessment: will check venous doppler
--- NOTE | 2018-03-13 12:57 | CP.PCM.PN ---
Subjective - Date & Time of Evaluation Date of Evaluation: 03/13/18 Time of Evaluation: 09:15 - Subjective Subjective: clinically same Objective - Vital Signs/Intake and Output Vital Signs (last 24 hours): Temp Pulse Resp BP Pulse Ox 97.8 F 108 H 20 99/60 L 97 03/13/18 07:35 03/13/18 12:00 03/13/18 07:35 03/13/18 07:35 03/13/18 07:35 Intake and Output: 03/13/18 03/13/18 06:59 18:59 Output Total 700 Balance -700 - Medications Medications: Current Medications Acetaminophen (Tylenol 325mg Tab) 650 mg PO Q6 PRN PRN Reason: PAIN 1-5 Aspirin (Aspirin Chewable) 81 mg PO DAILY [facility] Last Admin: 03/13/18 09:46 Dose: 81 mg Benztropine Mesylate (Cogentin) 0.5 mg PO BID [facility] Last Admin: 03/13/18 09:46 Dose: 0.5 mg Enoxaparin Sodium (Lovenox) 40 mg SC DAILY [facility] Last Admin: 03/13/18 09:47 Dose: 40 mg Lactulose (Enulose) 20 gm PO Q8H [facility] Last Admin: 03/13/18 05:45 Dose: 20 gm Lorazepam (Ativan) 1 mg IVP ONCE PRN PRN Reason: Anxiety Pantoprazole Sodium (Protonix Ec Tab) 40 mg PO DAILY [facility] Last Admin: 03/13/18 09:46 Dose: 40 mg Rosuvastatin Calcium (Crestor) 5 mg PO HS [facility] Last Admin: 03/12/18 21:38 Dose: 5 mg Senna/Docusate Sodium (Senokot S 50 Mg-8.6 Mg) 2 tab PO HS [facility] Last Admin: 03/12/18 21:38 Dose: 2 tab Simethicone (Mylicon Chew Tab) 80 mg PO Q8H [facility] Last Admin: 03/13/18 05:45 Dose: 80 mg Tamsulosin HCl (Flomax) 0.4 mg PO DAILY [facility] Last Admin: 03/13/18 09:47 Dose: 0.4 mg - Labs Labs: 03/08/18 08:57 03/08/18 08:57 PT 12.5 SECONDS (9.7-12.2) H 03/08/18 08:57 INR 1.1 03/08/18 08:57 APTT 32 SECONDS (21-34) 03/08/18 08:57 - Constitutional Appears: Well - Head Exam Head Exam: ATRAUMATIC, NORMAL INSPECTION, NORMOCEPHALIC - Eye Exam Eye Exam: EOMI, Normal appearance, PERRL Pupil Exam: NORMAL ACCOMODATION, PERRL - ENT Exam ENT Exam: Mucous Membranes Moist, Normal Exam - Neck Exam Neck Exam: Full ROM, Normal Inspection. absent: Lymphadenopathy - Respiratory Exam Respiratory Exam: Decreased Breath Sounds - Cardiovascular Exam Cardiovascular Exam: REGULAR RHYTHM, +S1, +S2 - GI/Abdominal Exam GI & Abdominal Exam: Soft, Diminished Bowel Sounds - Rectal Exam Rectal Exam: Deferred
[2018-03-13] MEDS: Docusate-Senna 50 mg-8.6 mg Tab PO SCH (21:57)
[2018-03-14] MEDS: Simethicone 80 mg Chewtab PO SCH ×3 (05:23→21:49)
--- NOTE | 2018-03-14 07:38 | CP.PCM.PN ---
Subjective - Date & Time of Evaluation Date of Evaluation: 03/14/18 Time of Evaluation: 08:00 - Subjective Subjective: Medicine Progress Note for Dr. Alexa Valadez: Patient was seen and examined at bedside in the AM. No acute events overnight. Patient was able to walk with assistance down the mo with the physical therapist. Patient states he had a small bowel movement yesterday. Patient denies other complaints. Objective - Vital Signs/Intake and Output Vital Signs (last 24 hours): Temp Pulse Resp BP Pulse Ox 97.9 F 74 20 115/74 97 03/13/18 23:50 03/13/18 23:50 03/13/18 23:50 03/13/18 23:50 03/13/18 23:50 Intake and Output: 03/14/18 03/14/18 06:59 18:59 Output Total 1000 Balance -1000 - Medications Medications: Current Medications Acetaminophen (Tylenol 325mg Tab) 650 mg PO Q6 PRN PRN Reason: PAIN 1-5 Last Admin: 03/13/18 19:23 Dose: 650 mg Aspirin (Aspirin Chewable) 81 mg PO DAILY [facility] Last Admin: 03/13/18 09:46 Dose: 81 mg Benztropine Mesylate (Cogentin) 0.5 mg PO BID [facility] Last Admin: 03/13/18 19:23 Dose: 0.5 mg Enoxaparin Sodium (Lovenox) 40 mg SC DAILY [facility] Last Admin: 03/13/18 09:47 Dose: 40 mg Lactulose (Enulose) 20 gm PO Q8H [facility] Last Admin: 03/14/18 05:23 Dose: 20 gm Lorazepam (Ativan) 1 mg IVP ONCE PRN PRN Reason: Anxiety Pantoprazole Sodium (Protonix Ec Tab) 40 mg PO DAILY [facility] Last Admin: 03/13/18 09:46 Dose: 40 mg Rosuvastatin Calcium (Crestor) 5 mg PO HS [facility] Last Admin: 03/13/18 21:57 Dose: 5 mg Senna/Docusate Sodium (Senokot S 50 Mg-8.6 Mg) 2 tab PO HS [facility] Last Admin: 03/13/18 21:57 Dose: 2 tab Simethicone (Mylicon Chew Tab) 80 mg PO Q8H [facility] Last Admin: 03/14/18 05:23 Dose: 80 mg Tamsulosin HCl (Flomax) 0.4 mg PO DAILY [facility] Last Admin: 03/13/18 09:47 Dose: 0.4 mg - Labs Labs: 03/08/18 08:57 03/08/18 08:57 PT 12.5 SECONDS (9.7-12.2) H 03/08/18 08:57 INR 1.1 03/08/18 08:57 APTT 32 SECONDS (21-34) 03/08/18 08:57 - Constitutional Appears: No Acute Distress - Head Exam Head Exam: ATRAUMATIC, NORMAL INSPECTION - Eye Exam Eye Exam: EOMI, Normal appearance - ENT Exam ENT Exam: Mucous Membranes Moist - Respiratory Exam Respiratory Exam: NORMAL BREATHING PATTERN - Cardiovascular Exam Cardiovascular Exam: REGULAR RHYTHM, +S1, +S2 - GI/Abdominal Exam GI & Abdominal Exam: Soft, Normal Bowel Sounds. absent: Tenderness - Neurological Exam Neurological Exam: Alert, Awake, Oriented x3 Neuro motor strength exam: Left Upper Extremity: 5, Right Upper Extremity: 2/1, Left Lower Extremity: 5, Right Lower Extremity: 0 Assessment and Plan - Assessment and Plan (Free Text) Assessment: 32 year old male with a history of CVA presented with LE paralysis, trismus, and RUE weakness. Dystonia/Right LE weakness - Neurology Consult: Dr. Jovel --> help appreciated - ID Consult: Dr. Alfred --> help appreciated - Psych Consult: Dr. Gonzalez --> help appreciated - Initially, NIH score of 22, but difficult to assess due to patients condition--> patient LLE has returned to baseline function - Images: Head CT: No acute intracranial pathology identified. * Head/Neck CTA: No evidence of significant atherosclerotic disease, evidence of occlusion, significant stenosis or evidence of dissection. No large aneurysm nor vascular malformation. * Brain MRI: unremarkable, no acute or chronic changes * Thoracic spine MRI w/ and w/o ROMELIA: no acute abnormality * Lumbar spine MRI w/ and w/o ROMELIA: no acute abnormality * Doppler: Negative - f/u Brain MRI with and w/o contrast; Spinal Canal Cervical MRI - Possible LP --> f/u with neurology History of Stroke - Aspirin 81mg daily - Crestor 5mg HS History of BPH - Flomax 0.4 mg daily Prophylaxis - PT/OT/Speech eval - Lovenox 40mg SC daily - Protonix 40mg daily - Lactulose 20gm PO q8h All medical management per Dr. Alexa Valadez
[2018-03-14] MEDS: Pantoprazole 40 mg EC Tab PO SCH (11:00)
[2018-03-14] MEDS: Enoxaparin 40 mg Syringe SC SCH (11:01)
[2018-03-14 11:33] LABS: BASO % 0.4 % (0.0-2.0); EOS # 0.3 K/uL (0.0-0.7); EOS % 5.1 % (0.0-4.0); LYMPH # 1.5 K/uL (1.0-4.3); LYMPH % 23.5 % (20.0-40.0); MEAN CELL VOLUME 91.9 fL (80.0-94.0); MEAN CORPUSCULAR HEMOGLOBIN 31.5 pg (27.0-31.0); MEAN CORPUSCULAR HGB CONC 34.2 g/dL (33.0-37.0); MEAN PLATELET VOLUME 9.4 fL (7.2-11.7); MONO # 0.4 K/uL (0.0-0.8); MONO % 6.3 % (0.0-10.0); NEUT # 4.3 K/uL (1.8-7.0); NEUT % 64.7 % (50.0-75.0); NRBC % 0.2 % (0.0-2.0); RBC 4.77 Mil/uL (4.40-5.90); RED CELL DISTRIBUTION WIDTH 12.8 % (11.5-14.5); WHITE BLOOD COUNT 6.6 K/uL (4.8-10.8)
[2018-03-14 11:59] LABS: ALB/GLOB RATIO 1.6 (1.0-2.1); ALBUMIN 4.4 g/dL (3.5-5.0); ALT/SGPT 57 U/L (21-72); AST/SGOT 30 U/L (17-59); BLOOD UREA NITROGEN 11 mg/dL (9-20); CALCIUM 9.7 mg/dl (8.6-10.4); GFR NON-AFRICAN AMERICAN > 60
--- NOTE | 2018-03-14 12:19 | CP.PCM.PN ---
Subjective - Date & Time of Evaluation Date of Evaluation: 03/14/18 Time of Evaluation: 10:00 - Subjective Subjective: awake alert was ambulating earlier rigt deficit same no fever for LP Objective - Vital Signs/Intake and Output Vital Signs (last 24 hours): Temp Pulse Resp BP Pulse Ox 98.2 F 79 20 129/82 97 03/14/18 07:00 03/14/18 07:00 03/14/18 07:00 03/14/18 07:00 03/14/18 07:00 Intake and Output: 03/14/18 03/14/18 06:59 18:59 Output Total 1000 Balance -1000 - Medications Medications: Current Medications Acetaminophen (Tylenol 325mg Tab) 650 mg PO Q6 PRN PRN Reason: PAIN 1-5 Last Admin: 03/13/18 19:23 Dose: 650 mg Aspirin (Aspirin Chewable) 81 mg PO DAILY [facility] Last Admin: 03/14/18 11:00 Dose: 81 mg Benztropine Mesylate (Cogentin) 0.5 mg PO BID [facility] Last Admin: 03/14/18 11:00 Dose: 0.5 mg Enoxaparin Sodium (Lovenox) 40 mg SC DAILY [facility] Last Admin: 03/14/18 11:01 Dose: 40 mg Lactulose (Enulose) 20 gm PO Q8H [facility] Last Admin: 03/14/18 05:23 Dose: 20 gm Lorazepam (Ativan) 1 mg IVP ONCE PRN PRN Reason: Anxiety Pantoprazole Sodium (Protonix Ec Tab) 40 mg PO DAILY [facility] Last Admin: 03/14/18 11:00 Dose: 40 mg Rosuvastatin Calcium (Crestor) 5 mg PO HS [facility] Last Admin: 03/13/18 21:57 Dose: 5 mg Senna/Docusate Sodium (Senokot S 50 Mg-8.6 Mg) 2 tab PO HS [facility] Last Admin: 03/13/18 21:57 Dose: 2 tab Simethicone (Mylicon Chew Tab) 80 mg PO Q8H [facility] Last Admin: 03/14/18 05:23 Dose: 80 mg Tamsulosin HCl (Flomax) 0.4 mg PO DAILY [facility] Last Admin: 03/14/18 11:00 Dose: 0.4 mg - Labs Labs: 03/08/18 08:57 03/08/18 08:57 PT 12.5 SECONDS (9.7-12.2) H 03/08/18 08:57 INR 1.1 03/08/18 08:57 APTT 32 SECONDS (21-34) 03/08/18 08:57 - Constitutional Appears: Non-toxic, Chronically Ill - Head Exam Head Exam: NORMOCEPHALIC - Eye Exam Eye Exam: absent: Scleral icterus - ENT Exam ENT Exam: Mucous Membranes Dry - Neck Exam Neck Exam: absent: Lymphadenopathy - Respiratory Exam Respiratory Exam: Decreased Breath Sounds - Cardiovascular Exam Cardiovascular Exam: REGULAR RHYTHM - GI/Abdominal Exam GI & Abdominal Exam: Distended, Soft - Rectal Exam Rectal Exam: Deferred - Exam Exam: NORMAL INSPECTION Assessment and Plan (1) Dystonia Status: Acute (2) Leg weakness Status: Acute
--- NOTE | 2018-03-14 12:36 | VASCLAB ---
Date of service: 03/13/2018 PROCEDURE: Lower Extremity Venous Duplex Exam. HISTORY: Pain in limb PRIORS: None. TECHNIQUE: Bilateral common femoral, femoral, popliteal and posterior tibial, peroneal and great saphenous veins were evaluated. Flow was assessed with color Doppler, compressibility, assessment of phasic flow and augmentation response. Report prepared by Patrick Montoya, BS, RVT FINDINGS: RIGHT: 1. Common Femoral Vein: 1.1. Compressibility - Fully compressible: Thrombus - None : Flow - Phasic: Augmentation -Normal: Reflux - None. 2. Femoral Vein: 2.1. Compressibility - Fully compressible: Thrombus - None : Flow - Phasic: Augmentation -Normal: Reflux - None. 3. Popliteal Vein: 3.1. Compressibility - Fully compressible: Thrombus - None : Flow - Phasic: Augmentation -Normal: Reflux - None. 4. Posterior Tibial Vein: 4.1. Compressibility - Fully compressible: Thrombus - None: Flow - Phasic: Augmentation -Normal: Reflux - None. 5. Peroneal Vein: 5.1. Compressibility - Fully compressible: Thrombus - None: Flow - Phasic: Augmentation -Normal: Reflux - None. 6. Great Saphenous Vein: 6.1. Compressibility - Fully compressible: Thrombus - None: Flow - Phasic: Augmentation - Normal: Reflux - None. LEFT: 1. Common Femoral Vein: 1.1. Compressibility - Fully compressible: Thrombus - None: Flow - Phasic: Augmentation -Normal: Reflux - None. 2. Femoral Vein: 2.1. Compressibility - Fully compressible: Thrombus - None: Flow - Phasic: Augmentation -Normal: Reflux - None. 3. Popliteal Vein: 3.1. Compressibility - Fully compressible: Thrombus - None : Flow - Phasic: Augmentation -Normal: Reflux - None. 4. Posterior Tibial Vein: 4.1. Compressibility - Fully compressible: Thrombus - None: Flow - Phasic: Augmentation -Normal: Reflux - None. 5. Peroneal Vein: 5.1. Compressibility - Fully compressible: Thrombus - None: Flow - Phasic: Augmentation -Normal: Reflux - None. 6. Great Saphenous Vein: 6.1. Compressibility - Fully compressible: Thrombus - None: Flow - Phasic: Augmentation - Normal: Reflux - None. OTHER FINDINGS: Right: None significant. Left: None significant. IMPRESSION: Right: No evidence of deep or superficial vein thrombosis of the right lower extremity. Normal valve function noted of the right side. Left: No evidence of deep or superficial vein thrombosis of the left lower extremity. Normal valve function noted of the left side.
[2018-03-14] MEDS ORDERED: Gadodiamide 287 mg/ml 20 ml IV ONE (13:40)
--- NOTE | 2018-03-14 16:18 | CP.PCM.PN ---
Subjective - Date & Time of Evaluation Date of Evaluation: 03/14/18 Time of Evaluation: 09:15 - Subjective Subjective: clinically same Objective - Vital Signs/Intake and Output Vital Signs (last 24 hours): Temp Pulse Resp BP Pulse Ox 98.2 F 79 20 129/82 97 03/14/18 07:00 03/14/18 07:00 03/14/18 07:00 03/14/18 07:00 03/14/18 07:00 Intake and Output: 03/14/18 03/14/18 06:59 18:59 Output Total 1000 Balance -1000 - Medications Medications: Current Medications Acetaminophen (Tylenol 325mg Tab) 650 mg PO Q6 PRN PRN Reason: PAIN 1-5 Last Admin: 03/13/18 19:23 Dose: 650 mg Aspirin (Aspirin Chewable) 81 mg PO DAILY [facility] BEDS AT [facility] Last Admin: 03/14/18 11:00 Dose: 81 mg Benztropine Mesylate (Cogentin) 0.5 mg PO BID [facility]CLUDE 234 BEDS AT [facility] Last Admin: 03/14/18 11:00 Dose: 0.5 mg Enoxaparin Sodium (Lovenox) 40 mg SC DAILY [facility]CLUDE 234 BEDS AT [facility] Last Admin: 03/14/18 11:01 Dose: 40 mg Lactulose (Enulose) 20 gm PO Q8H [facility]S [facility]CLUDE 234 BEDS AT [facility] Last Admin: 03/14/18 14:35 Dose: 20 gm Lorazepam (Ativan) 1 mg IVP ONCE PRN PRN Reason: Anxiety Pantoprazole Sodium (Protonix Ec Tab) 40 mg PO DAILY [facility] 234 BEDS AT [facility] Last Admin: 03/14/18 11:00 Dose: 40 mg Rosuvastatin Calcium (Crestor) 5 mg PO HS [facility]S INCLUDE 234 BEDS AT [facility] Last Admin: 03/13/18 21:57 Dose: 5 mg Senna/Docusate Sodium (Senokot S 50 Mg-8.6 Mg) 2 tab PO HS [facility]S [facility]CLUDE 234 BEDS AT [facility] Last Admin: 03/13/18 21:57 Dose: 2 tab Simethicone (Mylicon Chew Tab) 80 mg PO Q8H COUNTS INCLUDE 234 BEDS AT [facility] Last Admin: 03/14/18 14:35 Dose: 80 mg Sodium Phosphate (Fleet Enema) 135 ml PA ONCE ONE Stop: 03/14/18 16:31 Tamsulosin HCl (Flomax) 0.4 mg PO DAILY [facility]CLUDE 234 BEDS AT [facility] Last Admin: 03/14/18 11:00 Dose: 0.4 mg - Labs Labs: 03/14/18 11:20 03/14/18 11:20 PT 12.5 SECONDS (9.7-12.2) H 03/08/18 08:57 INR 1.1 03/08/18 08:57 APTT 32 SECONDS (21-34) 03/08/18 08:57 - Constitutional Appears: Well - Head Exam Head Exam: ATRAUMATIC, NORMAL INSPECTION, NORMOCEPHALIC - Eye Exam Eye Exam: EOMI, Normal appearance, PERRL Pupil Exam: NORMAL ACCOMODATION, PERRL - ENT Exam ENT Exam: Mucous Membranes Moist, Normal Exam - Neck Exam Neck Exam: Full ROM, Normal Inspection. absent: Lymphadenopathy - Respiratory Exam Respiratory Exam: Decreased Breath Sounds - Cardiovascular Exam Cardiovascular Exam: REGULAR RHYTHM, +S1, +S2 - GI/Abdominal Exam GI & Abdominal Exam: Soft, Diminished Bowel Sounds - Rectal Exam Rectal Exam: Deferred
--- NOTE | 2018-03-14 16:42 | MRI ---
Date of service: 03/14/2018 PROCEDURE: MRI BRAIN WITH AND WITHOUT CONTRAST HISTORY: demyelinating process COMPARISON: Comparison is made to the previous CT and CTA of the head dated 03/08/2018 TECHNIQUE: Multiplanar, multisequence MR images of the brain were obtained with and without intravenous contrast enhancement. FINDINGS: HEMORRHAGE: None DWI: No evidence of an acute or early subacute infarction. BRAIN PARENCHYMA: No mass,mass effect or edema. No atrophy or chronic microvascular ischemic changes. ENHANCEMENT: No abnormal intracranial enhancement. VENTRICLES: Unremarkable. No hydrocephalus. CRANIUM: Unremarkable. ORBITS: Grossly unremarkable. PARANASAL SINUSES/MASTOIDS: Clear VASCULAR SYSTEM: Skull base flow voids intact. OTHER FINDINGS: None . IMPRESSION: Unremarkable pre and post contrast enhanced MRI of the brain. No evidence of acute or subacute infarct. No MRI evidence of demyelination disease.
--- NOTE | 2018-03-14 16:51 | MRI ---
Date of service: 03/14/2018 PROCEDURE: MR CERVICAL SPINE WITH AND WITHOUT CONTRAST HISTORY: demyelinating process COMPARISON: None available. TECHNIQUE: Multiecho multiplanar sequences were performed through the cervical spine with and without the use of intravenous contrast. FINDINGS: Normal lordotic curvature. Craniocervical junction unremarkable. Vertebral body heights preserved. No marrow signal abnormality. Normal cervical cord. No paraspinal abnormality. No abnormal enhancement C2-3: No disc herniation, spinal canal stenosis or neural foraminal narrowing. C3-4: No disc herniation, spinal canal stenosis or neural foraminal narrowing. C4-5: No disc herniation, spinal canal stenosis or neural foraminal narrowing. C5-C6: No disc herniation, spinal canal stenosis or neural foraminal narrowing. C6-C7: No disc herniation, spinal canal stenosis or neuroforaminal narrowing. C7-T1: No disc herniation, spinal canal stenosis or neural foraminal narrowing. OTHER FINDINGS: None. IMPRESSION: No evidence of abnormal signal or enhancement in the cervical cord. No evidence of spinal or neural foramina narrowing.
[2018-03-14] MEDS: Docusate-Senna 50 mg-8.6 mg Tab PO SCH (21:49)
[2018-03-15] MEDS: Simethicone 80 mg Chewtab PO SCH ×3 (05:16→21:24)
[2018-03-15] MEDS: Pantoprazole 40 mg EC Tab PO SCH (09:13)
[2018-03-15] MEDS: Enoxaparin 40 mg Syringe SC SCH (09:13)
--- NOTE | 2018-03-15 09:19 | PN ---
DATE: 03/15/2018 TIME OF EVALUATION: 07:15 a.m. 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 The patient does not show any new episode of new neurological dysfunction since examination. The patient is neurologically stable at this time. Examination which is unchanged compared with my previous examination. Since the workup, MRI of the brain with the gadolinium does not show any demyelinating process. MRI of the pelvic does not show any new edema or any process or herniated disk. Electroencephalogram does not show any paroxysmal activities. RECOMMENDATIONS: At this point, the patient does not need any further workup from neurological point of view. The patient can be discharged and should have followup visit with me or other neurologist as it is possible he may need to continue his video electroencephalogram to rule out any hidden paroxysmal activities. Since there is no recurrence of the seizures, I do not want to put him on any antiepileptic drugs at present. The patient has been stable. No sign of infectious or inflammatory process at this point. No need of lumbar puncture at this point for further investigation for his existing problem. Follow up if needed, please consider to call me back. Win Jovel MD
[2018-03-15 10:44] LABS: BASO % 0.4 % (0.0-2.0); EOS # 0.3 K/uL (0.0-0.7); EOS % 4.8 % (0.0-4.0); HEMOGLOBIN 15.1 g/dL (12.0-18.0); LYMPH # 1.8 K/uL (1.0-4.3); LYMPH % 26.7 % (20.0-40.0); MEAN CELL VOLUME 91.4 fL (80.0-94.0); MEAN CORPUSCULAR HEMOGLOBIN 31.2 pg (27.0-31.0); MEAN CORPUSCULAR HGB CONC 34.2 g/dL (33.0-37.0); MONO # 0.4 K/uL (0.0-0.8); MONO % 6.6 % (0.0-10.0); NEUT # 4.1 K/uL (1.8-7.0); NEUT % 61.5 % (50.0-75.0); NRBC % 0.1 % (0.0-2.0); RBC 4.83 Mil/uL (4.40-5.90); WHITE BLOOD COUNT 6.7 K/uL (4.8-10.8)
--- NOTE | 2018-03-15 10:49 | CP.PCM.PN ---
Subjective - Date & Time of Evaluation Date of Evaluation: 03/15/18 Time of Evaluation: 08:00 - Subjective Subjective: Medicine Progress Note for Dr. Alexa Valadez: Patient was seen and examined at bedside in the AM. No acute events overnight. Patient was getting ready to complete his physical therapy. Patient denies other complaints. Objective - Vital Signs/Intake and Output Vital Signs (last 24 hours): Temp Pulse Resp BP Pulse Ox 97.8 F 72 18 120/80 98 03/15/18 07:15 03/15/18 07:15 03/15/18 07:15 03/15/18 07:15 03/15/18 07:15 Intake and Output: 03/15/18 03/15/18 06:59 18:59 Intake Total 480 Output Total 1250 Balance -770 - Medications Medications: Current Medications Acetaminophen (Tylenol 325mg Tab) 650 mg PO Q6 PRN PRN Reason: PAIN 1-5 Last Admin: 03/13/18 19:23 Dose: 650 mg Aspirin (Aspirin Chewable) 81 mg PO DAILY [facility] Last Admin: 03/15/18 09:13 Dose: 81 mg Benztropine Mesylate (Cogentin) 0.5 mg PO BID [facility] Last Admin: 03/15/18 09:13 Dose: 0.5 mg Enoxaparin Sodium (Lovenox) 40 mg SC DAILY [facility] Last Admin: 03/15/18 09:13 Dose: 40 mg Lactulose (Enulose) 20 gm PO Q8H [facility] Last Admin: 03/15/18 05:16 Dose: 20 gm Lorazepam (Ativan) 1 mg IVP ONCE PRN PRN Reason: Anxiety Pantoprazole Sodium (Protonix Ec Tab) 40 mg PO DAILY [facility] Last Admin: 03/15/18 09:13 Dose: 40 mg Rosuvastatin Calcium (Crestor) 5 mg PO HS [facility] Last Admin: 03/14/18 21:48 Dose: 5 mg Senna/Docusate Sodium (Senokot S 50 Mg-8.6 Mg) 2 tab PO HS [facility] Last Admin: 03/14/18 21:49 Dose: 2 tab Simethicone (Mylicon Chew Tab) 80 mg PO Q8H [facility] Last Admin: 03/15/18 05:16 Dose: 80 mg Tamsulosin HCl (Flomax) 0.4 mg PO DAILY [facility] Last Admin: 03/15/18 09:13 Dose: 0.4 mg - Labs Labs: 03/14/18 11:20 03/14/18 11:20 PT 12.5 SECONDS (9.7-12.2) H 03/08/18 08:57 INR 1.1 03/08/18 08:57 APTT 32 SECONDS (21-34) 03/08/18 08:57 - Constitutional Appears: No Acute Distress - Head Exam Head Exam: ATRAUMATIC, NORMAL INSPECTION - Eye Exam Eye Exam: EOMI, Normal appearance - ENT Exam ENT Exam: Mucous Membranes Moist - Respiratory Exam Respiratory Exam: Clear to Ausculation Bilateral, NORMAL BREATHING PATTERN - Cardiovascular Exam Cardiovascular Exam: REGULAR RHYTHM, +S1, +S2 - GI/Abdominal Exam GI & Abdominal Exam: Soft, Normal Bowel Sounds. absent: Tenderness - Neurological Exam Neurological Exam: Alert, Awake, Oriented x3 Neuro motor strength exam: Left Upper Extremity: 5, Right Upper Extremity: 3, Left Lower Extremity: 5, Right Lower Extremity: 0 - Psychiatric Exam Psychiatric exam: Normal Affect, Normal Mood - Skin Skin Exam: Normal Color Assessment and Plan - Assessment and Plan (Free Text) Assessment: 32 year old male with a history of CVA presented with LE paralysis, trismus, and RUE weakness. Dystonia/Right LE weakness - Neurology Consult: Dr. Jovel --> help appreciated - Per Dr. Jovel patient is stable; no sign of infectious or inflammatory process. No need for anti-epileptic drugs at this time. - ID Consult: Dr. Alfred --> help appreciated - Psych Consult: Dr. Gonzalez --> help appreciated - Initially, NIH score of 22, but difficult to assess due to patients condition--> patient LLE has returned to baseline function - Images: Head CT: No acute intracranial pathology identified. * Head/Neck CTA: No evidence of significant atherosclerotic disease, evidence of occlusion, significant stenosis or evidence of dissection. No large aneurysm nor vascular malformation. * Brain MRI: unremarkable, no acute or chronic changes * Thoracic spine MRI w/ and w/o ROMELIA: no acute abnormality * Lumbar spine MRI w/ and w/o ROMELIA: no acute abnormality * Doppler: Negative * Brain MRI with and w/o contrast: Unremarkable pre and post contrast enhanced MRI of the brain. No evidence of acute or subacute infarct. No MRI evidence of demyelination disease. * Cervical Spine MRI: No evidence of abnormal signal or enhancement in the cervical cord. No evidence of spinal or neural foramina narrowing. * EEG: Negative History of Stroke - Aspirin 81mg daily - Crestor 5mg HS History of BPH - Flomax 0.4 mg daily Prophylaxis - PT/OT/Speech eval - Lovenox 40mg SC daily - Protonix 40mg daily - Lactulose 20gm PO q8h All medical management per Dr. Alexa Valadez
[2018-03-15 11:07] LABS: ALB/GLOB RATIO 1.5 (1.0-2.1); ALBUMIN 4.6 g/dL (3.5-5.0); ALT/SGPT 55 U/L (21-72); AST/SGOT 30 U/L (17-59); BLOOD UREA NITROGEN 14 mg/dL (9-20); CALCIUM 9.3 mg/dl (8.6-10.4); GFR NON-AFRICAN AMERICAN > 60
--- NOTE | 2018-03-15 16:02 | EEG ---
DATE: 03/10/2018 This is a 16-channel electroencephalogram of awake and drowsy adult. During the study, photic stimulation was performed. Hyperventilation was not performed. The resting electroencephalogram consists of 20 to 30 microvolt diffuse 9 to 11 Hz alpha activity seen at parietal and occipital leads. Anteriorly, fast activity superimposed with 2 to 3 Hz delta activities seen at frontal and central leads. Some intermittent movement artifact contaminated the background rhythm. Some electrode artifact also contaminating the background rhythm intermittently. The photic stimulation did not evoke driving response noted at 2 to 20 Hz. IMPRESSION: This is normal electroencephalogram of awake and drowsy adult. During the study, neither electroencephalographic paroxysmal activities nor focal slowing noted. If the clinical suspicion is high, consider extended ambulatory video electroencephalogram. Win Jovel MD RONALD
[2018-03-15 17:11] VITALS: RESP 20
--- NOTE | 2018-03-15 18:06 | CP.PCM.PN ---
Subjective - Date & Time of Evaluation Date of Evaluation: 03/15/18 Time of Evaluation: 07:00 - Subjective Subjective: no change afebril Objective - Vital Signs/Intake and Output Vital Signs (last 24 hours): Temp Pulse Resp BP Pulse Ox 97.8 F 73 20 107/70 98 03/15/18 15:09 03/15/18 15:09 03/15/18 15:09 03/15/18 15:09 03/15/18 15:09 Intake and Output: 03/15/18 03/15/18 06:59 18:59 Intake Total 480 Output Total 1250 Balance -770 - Medications Medications: Current Medications Acetaminophen (Tylenol 325mg Tab) 650 mg PO Q6 PRN PRN Reason: PAIN 1-5 Last Admin: 03/13/18 19:23 Dose: 650 mg Aspirin (Aspirin Chewable) 81 mg PO DAILY [facility] Last Admin: 03/15/18 09:13 Dose: 81 mg Benztropine Mesylate (Cogentin) 0.5 mg PO BID [facility] Last Admin: 03/15/18 17:18 Dose: 0.5 mg Enoxaparin Sodium (Lovenox) 40 mg SC DAILY [facility] Last Admin: 03/15/18 09:13 Dose: 40 mg Lactulose (Enulose) 20 gm PO Q8H [facility] Last Admin: 03/15/18 13:54 Dose: 20 gm Lorazepam (Ativan) 1 mg IVP ONCE PRN PRN Reason: Anxiety Pantoprazole Sodium (Protonix Ec Tab) 40 mg PO DAILY [facility] Last Admin: 03/15/18 09:13 Dose: 40 mg Rosuvastatin Calcium (Crestor) 5 mg PO HS [facility] Last Admin: 03/14/18 21:48 Dose: 5 mg Senna/Docusate Sodium (Senokot S 50 Mg-8.6 Mg) 2 tab PO HS [facility] Last Admin: 03/14/18 21:49 Dose: 2 tab Simethicone (Mylicon Chew Tab) 80 mg PO Q8H [facility] Last Admin: 03/15/18 13:54 Dose: 80 mg Tamsulosin HCl (Flomax) 0.4 mg PO DAILY [facility] Last Admin: 03/15/18 09:13 Dose: 0.4 mg - Labs Labs: 03/15/18 10:36 03/15/18 10:36 PT 12.5 SECONDS (9.7-12.2) H 03/08/18 08:57 INR 1.1 03/08/18 08:57 APTT 32 SECONDS (21-34) 03/08/18 08:57 - Constitutional Appears: Non-toxic - Head Exam Head Exam: NORMOCEPHALIC - Eye Exam Eye Exam: absent: Scleral icterus - ENT Exam ENT Exam: Mucous Membranes Dry - Neck Exam Neck Exam: absent: Lymphadenopathy - Respiratory Exam Respiratory Exam: Decreased Breath Sounds - Cardiovascular Exam Cardiovascular Exam: REGULAR RHYTHM - GI/Abdominal Exam GI & Abdominal Exam: Distended, Soft - Rectal Exam Rectal Exam: Deferred - Exam Exam: NORMAL INSPECTION - Extremities Exam Extremities Exam: absent: Pedal Edema - Back Exam Back Exam: absent: CVA tenderness (L), CVA tenderness (R) - Neurological Exam Neurological Exam: Alert, Awake, Oriented x3 Neuro motor strength exam: Left Upper Extremity: 5, Right Upper Extremity: 3, Left Lower Extremity: 5, Right Lower Extremity: 3 - Psychiatric Exam Psychiatric exam: Normal Mood - Skin Skin Exam: Dry Assessment and Plan (1) Dystonia Status: Acute (2) Leg weakness Status: Acute - Assessment and Plan (Free Text) Assessment: awaiting LP
--- NOTE | 2018-03-15 18:09 | CP.PCM.PN ---
Subjective - Date & Time of Evaluation Date of Evaluation: 03/15/18 Time of Evaluation: 09:15 - Subjective Subjective: clinically same Objective - Vital Signs/Intake and Output Vital Signs (last 24 hours): Temp Pulse Resp BP Pulse Ox 97.8 F 73 20 107/70 98 03/15/18 15:09 03/15/18 15:09 03/15/18 15:09 03/15/18 15:09 03/15/18 15:09 Intake and Output: 03/15/18 03/15/18 06:59 18:59 Intake Total 480 Output Total 1250 Balance -770 - Medications Medications: Current Medications Acetaminophen (Tylenol 325mg Tab) 650 mg PO Q6 PRN PRN Reason: PAIN 1-5 Last Admin: 03/13/18 19:23 Dose: 650 mg Aspirin (Aspirin Chewable) 81 mg PO DAILY [facility] Last Admin: 03/15/18 09:13 Dose: 81 mg Benztropine Mesylate (Cogentin) 0.5 mg PO BID [facility] Last Admin: 03/15/18 17:18 Dose: 0.5 mg Enoxaparin Sodium (Lovenox) 40 mg SC DAILY [facility] Last Admin: 03/15/18 09:13 Dose: 40 mg Lactulose (Enulose) 20 gm PO Q8H [facility] Last Admin: 03/15/18 13:54 Dose: 20 gm Lorazepam (Ativan) 1 mg IVP ONCE PRN PRN Reason: Anxiety Pantoprazole Sodium (Protonix Ec Tab) 40 mg PO DAILY [facility] Last Admin: 03/15/18 09:13 Dose: 40 mg Rosuvastatin Calcium (Crestor) 5 mg PO HS [facility] Last Admin: 03/14/18 21:48 Dose: 5 mg Senna/Docusate Sodium (Senokot S 50 Mg-8.6 Mg) 2 tab PO HS [facility] Last Admin: 03/14/18 21:49 Dose: 2 tab Simethicone (Mylicon Chew Tab) 80 mg PO Q8H [facility] Last Admin: 03/15/18 13:54 Dose: 80 mg Tamsulosin HCl (Flomax) 0.4 mg PO DAILY [facility] Last Admin: 03/15/18 09:13 Dose: 0.4 mg - Labs Labs: 03/15/18 10:36 03/15/18 10:36 PT 12.5 SECONDS (9.7-12.2) H 03/08/18 08:57 INR 1.1 03/08/18 08:57 APTT 32 SECONDS (21-34) 03/08/18 08:57 - Constitutional Appears: Well - Head Exam Head Exam: ATRAUMATIC, NORMAL INSPECTION, NORMOCEPHALIC - Eye Exam Eye Exam: EOMI, Normal appearance, PERRL Pupil Exam: NORMAL ACCOMODATION, PERRL - ENT Exam ENT Exam: Mucous Membranes Moist, Normal Exam - Neck Exam Neck Exam: Full ROM, Normal Inspection. absent: Lymphadenopathy - Respiratory Exam Respiratory Exam: Decreased Breath Sounds - Cardiovascular Exam Cardiovascular Exam: REGULAR RHYTHM, +S1, +S2 - GI/Abdominal Exam GI & Abdominal Exam: Soft, Diminished Bowel Sounds - Rectal Exam Rectal Exam: Deferred
[2018-03-15] MEDS: Docusate-Senna 50 mg-8.6 mg Tab PO SCH (21:24)
[2018-03-16] MEDS: Simethicone 80 mg Chewtab PO SCH ×3 (06:19→21:14)
[2018-03-16] MEDS: Enoxaparin 40 mg Syringe SC SCH (09:22)
[2018-03-16] MEDS: Pantoprazole 40 mg EC Tab PO SCH (09:23)
--- NOTE | 2018-03-16 17:30 | CP.PCM.PN ---
Subjective - Date & Time of Evaluation Date of Evaluation: 03/16/18 Time of Evaluation: 08:45 - Subjective Subjective: clinically same Objective - Vital Signs/Intake and Output Vital Signs (last 24 hours): Temp Pulse Resp BP Pulse Ox 97.8 F 96 H 20 134/88 98 03/16/18 15:00 03/16/18 15:00 03/16/18 15:00 03/16/18 15:00 03/16/18 15:00 Intake and Output: 03/16/18 03/16/18 06:59 18:59 Intake Total 500 Balance 500 - Medications Medications: Current Medications Acetaminophen (Tylenol 325mg Tab) 650 mg PO Q6 PRN PRN Reason: PAIN 1-5 Last Admin: 03/13/18 19:23 Dose: 650 mg Aspirin (Aspirin Chewable) 81 mg PO DAILY [facility] Last Admin: 03/16/18 09:23 Dose: 81 mg Benztropine Mesylate (Cogentin) 0.5 mg PO BID [facility] Last Admin: 03/16/18 17:21 Dose: 0.5 mg Enoxaparin Sodium (Lovenox) 40 mg SC DAILY [facility] Last Admin: 03/16/18 09:22 Dose: 40 mg Lactulose (Enulose) 20 gm PO Q8H [facility] Last Admin: 03/16/18 13:08 Dose: 20 gm Lorazepam (Ativan) 1 mg IVP ONCE PRN PRN Reason: Anxiety Pantoprazole Sodium (Protonix Ec Tab) 40 mg PO DAILY [facility] Last Admin: 03/16/18 09:23 Dose: 40 mg Rosuvastatin Calcium (Crestor) 5 mg PO HS [facility] Last Admin: 03/15/18 21:24 Dose: 5 mg Senna/Docusate Sodium (Senokot S 50 Mg-8.6 Mg) 2 tab PO HS [facility] Last Admin: 03/15/18 21:24 Dose: 2 tab Simethicone (Mylicon Chew Tab) 80 mg PO Q8H [facility] Last Admin: 03/16/18 13:08 Dose: 80 mg Tamsulosin HCl (Flomax) 0.4 mg PO DAILY [facility] Last Admin: 03/16/18 09:23 Dose: 0.4 mg - Labs Labs: 03/15/18 10:36 03/15/18 10:36 PT 12.5 SECONDS (9.7-12.2) H 03/08/18 08:57 INR 1.1 03/08/18 08:57 APTT 32 SECONDS (21-34) 03/08/18 08:57 - Constitutional Appears: Well - Head Exam Head Exam: ATRAUMATIC, NORMAL INSPECTION, NORMOCEPHALIC - Eye Exam Eye Exam: EOMI, Normal appearance, PERRL Pupil Exam: NORMAL ACCOMODATION, PERRL - ENT Exam ENT Exam: Mucous Membranes Moist, Normal Exam - Neck Exam Neck Exam: Full ROM, Normal Inspection. absent: Lymphadenopathy - Respiratory Exam Respiratory Exam: Decreased Breath Sounds - Cardiovascular Exam Cardiovascular Exam: REGULAR RHYTHM, +S1, +S2 - GI/Abdominal Exam GI & Abdominal Exam: Soft, Diminished Bowel Sounds - Rectal Exam Rectal Exam: Deferred Assessment and Plan - Assessment and Plan (Free Text) Plan: Family bedside The movements back to the basics although patient still speaks little different Awaiting for the lumbar puncture MRI of the brain with contrast no infarct MRI of the cervical spine no acute abnormalities All the reports of the other MRIs discussed with the other brother Awaiting lumbar puncture As ordered
--- NOTE | 2018-03-16 17:59 | CP.PCM.PN ---
Subjective - Date & Time of Evaluation Date of Evaluation: 03/16/18 Time of Evaluation: 10:00 - Subjective Subjective: awake alert debnies fever or headache Objective - Vital Signs/Intake and Output Vital Signs (last 24 hours): Temp Pulse Resp BP Pulse Ox 97.8 F 96 H 20 134/88 98 03/16/18 15:00 03/16/18 15:00 03/16/18 15:00 03/16/18 15:00 03/16/18 15:00 Intake and Output: 03/16/18 03/16/18 06:59 18:59 Intake Total 500 Balance 500 - Medications Medications: Current Medications Acetaminophen (Tylenol 325mg Tab) 650 mg PO Q6 PRN PRN Reason: PAIN 1-5 Last Admin: 03/13/18 19:23 Dose: 650 mg Aspirin (Aspirin Chewable) 81 mg PO DAILY [facility] Last Admin: 03/16/18 09:23 Dose: 81 mg Benztropine Mesylate (Cogentin) 0.5 mg PO BID [facility] Last Admin: 03/16/18 17:21 Dose: 0.5 mg Enoxaparin Sodium (Lovenox) 40 mg SC DAILY [facility] Last Admin: 03/16/18 09:22 Dose: 40 mg Lactulose (Enulose) 20 gm PO Q8H [facility] Last Admin: 03/16/18 13:08 Dose: 20 gm Lorazepam (Ativan) 1 mg IVP ONCE PRN PRN Reason: Anxiety Pantoprazole Sodium (Protonix Ec Tab) 40 mg PO DAILY [facility] Last Admin: 03/16/18 09:23 Dose: 40 mg Rosuvastatin Calcium (Crestor) 5 mg PO HS [facility] Last Admin: 03/15/18 21:24 Dose: 5 mg Senna/Docusate Sodium (Senokot S 50 Mg-8.6 Mg) 2 tab PO HS [facility] Last Admin: 03/15/18 21:24 Dose: 2 tab Simethicone (Mylicon Chew Tab) 80 mg PO Q8H [facility] Last Admin: 03/16/18 13:08 Dose: 80 mg Tamsulosin HCl (Flomax) 0.4 mg PO DAILY [facility] Last Admin: 03/16/18 09:23 Dose: 0.4 mg - Labs Labs: 03/15/18 10:36 03/15/18 10:36 PT 12.5 SECONDS (9.7-12.2) H 03/08/18 08:57 INR 1.1 03/08/18 08:57 APTT 32 SECONDS (21-34) 03/08/18 08:57 - Constitutional Appears: Non-toxic, Chronically Ill - Head Exam Head Exam: NORMOCEPHALIC - Eye Exam Eye Exam: absent: Scleral icterus - ENT Exam ENT Exam: Mucous Membranes Dry - Neck Exam Neck Exam: absent: Lymphadenopathy - Respiratory Exam Respiratory Exam: Decreased Breath Sounds, Clear to Ausculation Bilateral - Cardiovascular Exam Cardiovascular Exam: REGULAR RHYTHM, +S1, +S2 - GI/Abdominal Exam GI & Abdominal Exam: Distended - Rectal Exam Rectal Exam: Deferred - Exam Exam: NORMAL INSPECTION - Extremities Exam Extremities Exam: absent: Pedal Edema - Back Exam Back Exam: absent: CVA tenderness (L), CVA tenderness (R) - Neurological Exam Neurological Exam: Alert, Awake, CN II-XII Intact, Motor Sensory Deficit, Oriented x3 Neuro motor strength exam: Left Upper Extremity: 5, Right Upper Extremity: 3, Left Lower Extremity: 5, Right Lower Extremity: 3 - Psychiatric Exam Psychiatric exam: Normal Mood - Skin Skin Exam: Dry, Intact Assessment and Plan (1) Dystonia Status: Acute (2) Leg weakness Status: Acute - Assessment and Plan (Free Text) Assessment: awaiting LP all cultures thus far negative'
[2018-03-16] MEDS: Docusate-Senna 50 mg-8.6 mg Tab PO SCH (21:14)
[2018-03-17 02:48] VITALS: TEMP 97.9
[2018-03-17] MEDS: Simethicone 80 mg Chewtab PO SCH (06:21)
[2018-03-17 08:11] VITALS: BP 106/68; PULSE 68; O2SAT 99
[2018-03-17] MEDS: Enoxaparin 40 mg Syringe SC SCH (09:05)
[2018-03-17] MEDS: Pantoprazole 40 mg EC Tab PO SCH (09:05)
--- NOTE | 2018-03-17 16:52 | CP.PCM.PN ---
Objective - Vital Signs/Intake and Output Vital Signs (last 24 hours): Temp Pulse Resp BP Pulse Ox 97.9 F 68 20 106/68 99 03/17/18 07:10 03/17/18 07:10 03/17/18 07:10 03/17/18 07:10 03/17/18 07:10 Intake and Output: 03/17/18 03/17/18 06:59 18:59 Intake Total 350 Output Total 1700 800 Balance -1700 -450 - Labs Labs: 03/15/18 10:36 03/15/18 10:36 PT 12.5 SECONDS (9.7-12.2) H 03/08/18 08:57 INR 1.1 03/08/18 08:57 APTT 32 SECONDS (21-34) 03/08/18 08:57 Assessment and Plan - Assessment and Plan (Free Text) Assessment: 32 year old male admitted from [facility] with new weakness, seen and examined. Alert and orientedx3, wants to go back to rehab. Cleared by neurologyst, no need fo LP at this point. Discussed with family, agreed for tra nsfer back to the rehab. Discussed with DR Alexa Valadez , plan to discharge to [facility] today. Advised to follow up with the neurologyst in 1 -2 weeks.
== END 2018-03-17 12:08 | DRG 92 ==
LOC: C.ER 07:49 → C.9E 12:17 → C.6T 12:30
PROVIDERS: ADMIT Internal Medicine Nephrology; ATTEND Internal Medicine Nephrology
DX: G24.9 Dystonia, unspecified (principal); G81.91 Hemiplegia, unspecified affecting right dominant side; F43.22 Adjustment disorder with anxiety; F17.290 Nicotine dependence, other tobacco product, uncomplicated; G83.14 Monoplegia of lower limb affecting left nondominant side; J45.909 Unspecified asthma, uncomplicated; N40.0 Benign prostatic hyperplasia without lower urinary tract symptoms; I69.398 Other sequelae of cerebral infarction; R56.9 Unspecified convulsions; Z79.82 Long term (current) use of aspirin; Z79.899 Other long term (current) drug therapy; Z82.49 Family history of ischemic heart disease and other diseases of the circulatory system